=== PATIENT | male | born 1940 | race Caucasian/White ===

== ENCOUNTER 2017-03-17 11:36 | Inpatient (IN) ==
[2017-03-17] MEDS ORDERED: Acetaminophen 325 MG TABLET PO ONE (12:54)
--- NOTE | 2017-03-17 13:01 | Emergency Department Note ---
Disposition Clinical Impression: Lacunar infarction TIA (transient ischemic attack) Qualifiers: Transient cerebral ischemia type: amaurosis fugax Qualified Code(s): G45.3 - Amaurosis fugax Transient visual loss Qualifiers: Laterality: right Qualified Code(s): H53.121 - Transient visual loss, right eye Disposition: Admitted As Inpatient Condition: Good Time of Disposition: 15:11 Fall HPI - General Chief Complaint: ED Fall Stated Complaint: Fall R hip Pain/ Left Hand and Facial Numbness Time Seen by Provider: 03/17/17 12:34 Source: patient Mode of arrival: ambulatory Limitations: no limitations Nursing Notes Reviewed: Yes Vital Signs Reviewed: Yes - History of Present Illness HPI Narrative: Patient presents to the ED with 2 separate complaints. Patient first complaint is of right hip and right low back pain. He reports that yesterday he was getting off his lawnmower and his left hip gave out and he fell to the ground and landed on his right greater trochanter. He states that he needs a left hip replacement and that is not uncommon for his hip to give out, however, he has been having fairly significant pain and ecchymosis to his right hip and low back. States he has been able to ambulate but with some difficulty. No loss of control of bowel or bladder function. No associated abdominal pain, nausea, vomiting or diarrhea. Patient's second complaint is intermittent, left-sided facial numbness and left hand numbness. Patient states that this numbness started before she fell, but not immediately before. States he had it a few days ago and then also had it last night. He reports that the left side of his face from his left eye down to his jaw is not completely numb, but has significant decrease in sensation as compared to the right. He also complains of numbness in his left second and third digit dorsum of his hand up to his wrist. This is also intermittent and has resolved. There is no focal neurological weakness or deficit. He has had no slurred speech or confusion. He does have a history of TIAs, but cannot remember what they are like because there was so long ago. He does state that sometimes when he turns his head that that will bring the numbness on but other times it will not. He also complains of intermittent transient loss in his entire right visual field of the last month. He states at times it will pretty much go completely away. Other than being able to see lights and shapes. He saw his carbide powder processor to cleaned off his cataract lens and checked him for diabetic retinopathy and states that the back of his eye looked good. He has no neurological complaints currently. - Related Data Home Medications Medication Instructions Recorded Confirmed Clopidogrel [Plavix] 75 mg PO DAILY 03/17/17 03/17/17 Insulin NPH Human Isophane 20 unit SQ QPM 03/17/17 03/17/17 [Novolin N] Insulin Regular, Human [Novolin R] 20 unit SQ QAM 03/17/17 03/17/17 Lisinopril-HCTZ 20-12.5 [Prinzide 1 tab PO BID 03/17/17 03/17/17 20-12.5] Metoprolol [Lopressor] 25 mg PO BID 03/17/17 03/17/17 Pravastatin Sodium [Pravachol] 40 mg PO QPM 03/17/17 03/17/17 amLODIPine [Norvasc] 5 mg PO DAILY 03/17/17 03/17/17 Allergies Allergy/AdvReac Type Severity Reaction Status Date / Time Iodinated Contrast- Oral and Allergy Hives Verified 03/17/17 11:40 IV Dye [Iodinated Contrast Media - Oral and] All systems ED: reviewed and negative except as stated. Constitutional: Denies: fever, chills Eyes: Reports: vision change ENT ED: Denies: dysphagia Cardiovascular: Denies: chest pain Respiratory: Denies: dyspnea Gastrointestinal: Denies: abdominal pain, vomiting Genitourinary: Denies: hematuria Musculoskeletal: Reports: as per HPI, back pain, myalgia Integumentary: Reports: as per HPI Neurological: Reports: numbness, paresthesias. Denies: headache Endocrine: Denies: fatigue Fall PMH - Past Medical History Medical history: Reports: arthritis, cancer, COPD, coronary artery disease, diabetes, hyperlipidemia, hypertension, myocardial infarction, other Psychiatric history: Reports: no psych history - Social History Smoking Status: Former smoker Alcohol use: Reports: none Drug use: Reports: none Physical Exam - General Limitations: no limitations General appearance: alert, in no apparent distress - Head Head exam: atraumatic, normocephalic, normal inspection - Eye Eye exam: Present: normal appearance, PERRL, EOMI - ENT ENT exam: normal exam, normal oropharynx, mucous membranes moist - Neck Neck exam: Present: normal inspection, full ROM, trachea midline. Absent: tenderness - Chest Chest inspection: Present: normal inspection, symmetric chest wall rise - Respiratory Respiratory exam: Present: normal lung sounds bilaterally - Cardiovascular Cardiovascular exam: Present: regular rate, normal rhythm, normal heart sounds - Abdominal Exam Abdominal exam: Present: soft, Non-Tender. Absent: tenderness, distention, guarding, rebound, rigidity - Extremities Exam Extremities exam: Present: normal inspection, full ROM. Absent: tenderness, pedal edema - Expanded Lower Extremity Exam Hip/Pelvis exam: Present: pelvis stable, other (Patient has a large area of ecchymosis over his right greater trochanter extending down the thigh and up over the iliac crest associated with tenderness and muscle spasm of the lower right lateral lumbar spine.) Upper leg exam: Present: normal inspection, full ROM Knee exam: Present: normal inspection, full ROM Lower leg exam: Present: normal inspection, full ROM Ankle exam: Present: normal inspection, full ROM Foot/toe exam: Present: normal inspection, full ROM Neurovascular/Tendon exam: Present: normal capillary refill. Absent: motor deficit, sensory deficit, tendon deficit Gait: antalgic - Back Exam Back exam: Present: other (Patient has tenderness over the lower lumbar vertebra but more so over the right lateral lumbar musculature. Associated ecchymosis from a recent fall. Iliac crest on the right is also tender) - Neurological Exam Neurological exam: Present: alert, oriented X3, CN II-XII intact (Does have a subjective decrease in sensation on the left V2/V3 distribution. Otherwise normal) - Psychiatric Psychiatric exam: Present: normal affect, normal mood - Skin Skin exam: Present: warm, dry, intact, normal color Course Course Narrative: 77-year-old male presenting with low back and right hip pain, but also concerns over TIA. We will CT his lumbar spine and hip due to tenderness and ecchymosis. Also CT his head. Patient will likely need to be admitted to the hospital for carotid ultrasound and MRI of the brain. Patient and family agreeable with plan. Does take Plavix daily. 4. History of stents Vital Signs Temperature 97.7 F 03/17/17 11:40 Pulse Rate 55 03/17/17 11:40 Respiratory Rate 20 03/17/17 11:40 Blood Pressure 174/76 03/17/17 11:40 O2 Sat by Pulse Oximetry 97 03/17/17 11:40 Temperature 98 F 03/17/17 18:42 Pulse Rate 59 03/17/17 18:42 Respiratory Rate 20 03/17/17 18:42 Blood Pressure 163/79 03/17/17 18:42 O2 Sat by Pulse Oximetry 94 03/17/17 18:42 Oxygen Delivery Oxygen Delivery Room Air Fall - Medical Records Medical records reviewed: Yes I reviewed the patient's medical records. - Lab Data Lab results reviewed: Yes I reviewed the patient's lab results. Result diagrams: 03/17/17 13:30 03/17/17 13:30 Lab Results 03/17/17 03/17/17 03/17/17 Range/Units 13:30 13:30 13:30 WBC 6.2 (4.3-11.1) K/mcL RBC 4.28 (4.19-5.50) M/mcL Hgb 13.5 (12.9-16.9) g/dL Hct 38.9 (37.5-50.1) % MCV 90.9 (83.0-100.0) fL MCH 31.5 (28.0-33.3) pg MCHC 34.7 (31.6-35.5) g/dL RDW 12.6 (11.5-14.5) % Plt Count 137 L (140-400) K/mcL MPV 10.6 (9.4-12.4) fL Immature Gran % 0.6 (0-4) % Seg Neutrophils % 61.6 % Lymphocytes % 24.1 % Monocytes % 12.1 % Eosinophils % 1.1 % Basophils % 0.5 % Neutrophils # 3.8 (1.6-8.9) K/mcL Lymphocytes # 1.5 (0.6-4.6) K/mcL Monocytes # 0.8 (0.0-1.3) K/mcL Eosinophils # 0.1 (0.0-0.6) K/mcL Basophils # 0.0 (0.0-0.2) K/mcL Sodium 138 (136-145) mEq/L Potassium 4.0 (3.5-4.5) mEq/L Chloride 102 (98-109) mEq/L Carbon Dioxide 30 H (19-29) mEq/L BUN 17 (8-26) mg/dL Creatinine 0.94 (0.72-1.25) mg/dL Est GFR ( Amer) > 60 (> 60) Est GFR (Non-Af Amer) > 60 (> 60) BUN/Creatinine Ratio 18 (6-26) Glucose 135 H (70-99) mg/dL Calculated Osmolality 289 (280-300) Calcium 9.3 (8.6-10.8) mg/dL Magnesium 1.6 (1.6-2.6) mg/dL Total Bilirubin 1.1 (0.2-1.2) mg/dL AST 19 (5-34) Units/L ALT 15 (0-55) Units/L Alkaline Phosphatase 77 (38-126) Units/L Creatine Kinase 113 (30-200) Units/L Troponin I 0.01 (0-0.03) ng/mL Serum Total Protein 6.5 (6.0-8.3) g/dL Albumin 3.3 L (3.5-5.0) g/dL Globulin 3.2 (2.4-3.5) g/dL Albumin/Globulin Ratio 1.0 L (1.1-2.2) - Radiology Data Radiology results reviewed: Yes I reviewed the patient's radiology results. - EKG Data EKG attestation: Yes I reviewed and interpreted this EKG. EKG results narrative: Sinus bradycardia with first-degree AV block, rate 54, ID interval 2:30, QRS 85 , QTC 393, normal axis, no ischemic changes S.B.A.R. - Kailash.[email or web address] Situation: Demographics, MOA Background: Presenting Complaint, Relevant PMH, Meds, & Allergies Assessment: Vital Signs, Course and respsone to treatment, Exam Concerns, Patient/Family Expectation, Pertinant Lab Results, Outstanding Labs Recommendation: Barrier(s) to disposition, Recommendation based on pending studies, treatments, or consults S.B.A.RPiyush Report Given to: Dr. Artur Valente Repor Time: 15:11 Attestation Statement - Attestation Attestation: I examined this patient and my medical decision-making was reviewed with the Resident Physician. I agree with the documented findings, disposition and treatment plan as described except to the extent set forth below. Male patient with frequent falls and the concern for stroke. CT scan concerning for stroke. Age indeterminate. Will admit for further evaluation and stroke workup.
[2017-03-17 13:42] LABS: Basophils % 0.5 %; Eosinophils # 0.1 K/mcL (0.0-0.6); Eosinophils % 1.1 %; Hematocrit 38.9 % (37.5-50.1); Hemoglobin 13.5 g/dL (12.9-16.9); Immature Granulocytes % 0.6 % (0-4); Lymphocytes # 1.5 K/mcL (0.6-4.6); Lymphocytes % 24.1 %; Mean Corpuscular HGB Conc 34.7 g/dL (31.6-35.5); Mean Corpuscular Hemoglobin 31.5 pg (28.0-33.3); Mean Corpuscular Volume 90.9 fL (83.0-100.0); Mean Platelet Volume 10.6 fL (9.4-12.4); Monocytes # 0.8 K/mcL (0.0-1.3); Monocytes % 12.1 %; Neutrophils # 3.8 K/mcL (1.6-8.9); Platelet Count 137 K/mcL (140-400); Red Blood Count 4.28 M/mcL (4.19-5.50); Red Cell Distribution Width 12.6 % (11.5-14.5); Segmented Neutrophils % 61.6 %
[2017-03-17 13:56] LABS: Alanine Aminotransferase 15 Units/L (0-55); Albumin 3.3 g/dL (3.5-5.0); Alkaline Phosphatase 77 Units/L (38-126); BUN/Creatinine Ratio 18 (6-26); Bilirubin,Total 1.1 mg/dL (0.2-1.2); Blood Urea Nitrogen 17 mg/dL (8-26); Calcium 9.3 mg/dL (8.6-10.8); Carbon Dioxide 30 mEq/L (19-29); Chloride 102 mEq/L (98-109); Creatine Kinase 113 Units/L (30-200); Globulin 3.2 g/dL (2.4-3.5); Magnesium 1.6 mg/dL (1.6-2.6); Sodium 138 mEq/L (136-145); Total Protein 6.5 g/dL (6.0-8.3); eGFR For African Americans > 60 (> 60); eGFR For Non-African Americans > 60 (> 60)
[2017-03-17 14:49] LABS: Aspartate Amino Transferase 19 Units/L (5-34); Glucose 135 mg/dL (70-99)
[2017-03-17] MEDS ORDERED: Aspirin 325 MG TABLET PO ONE (14:49)
[2017-03-17 14:50] LABS: Osmolality,Calculated 289 (280-300)
[2017-03-17] MEDS ORDERED: Ondansetron 4 MG/2 ML VIAL IVP PRN (18:00)
[2017-03-17] MEDS ORDERED: Naloxone 0.4 MG/ML INJ IVP PRN (18:00)
--- NOTE | 2017-03-17 18:03 | Event Note ---
Date of Encounter: 03/17/17 Time of Encounter: 17:45 I personally interviewed and examined this pt. I agree with the findings, assessment and plan of COMPUTER DESIGNER Gilmer. TI workup with MRI, echo, carotid. PeAdd babrmissive HTN. On plavix and statin. Add baby asa.
[2017-03-17] MEDS ORDERED: *HR* Dextrose 50 % in Water (Syg) 50 ML SYRINGE IVP PRN (18:08)
[2017-03-17] MEDS ORDERED: Dextrose Gel 15 GM PO PRN ×2 (18:08)
[2017-03-17] MEDS ORDERED: D5% in Water 1,000 ML IVC PRN (18:08)
--- NOTE | 2017-03-17 18:43 | Internal Med History&Physical ---
Date of Encounter: 03/17/17 Time of Encounter: 17:29 Assessment and Plan (1) Lacunar infarction Current visit: Yes Status: Acute 1 patient has been expressing intermittent numbness tingling as well as left- sided heaviness to lower extremity off and on for the past few days. He does have a history of TIA, diabetes hypertension hyperlipidemia. CT of the head did reveal small right pelvic lacunar infarct. Victor Hugo his symptoms have resolved. We will continue with neuro checks 2 I did consult neurology and spoke with Dr. Leo will see patient a phone consult 3 we will obtain MRI of head 3 carotid Dopplers 4 cardiac echo 5 continue on Plavix, baby aspirin and statin we will check lipid profile 6 -permissive hypertensive we will continue with his home medications 7 continuous cardiac monitoring (2) Hypertension Current visit: No Status: Chronic 1 presently systolics 160-170 we will continue with home medications for now and allow for permissive hypertension-treat for systolic greater than 200 Qualifiers: Hypertension type: essential hypertension Qualified Code(s): I10 - Essential (primary) hypertension (3) Diabetes mellitus Current visit: Yes Status: Acute 1 Accu-Cheks before meals at bedtime with fine scale insulin we will continue with basal 2 diabetic diet Qualifiers: Diabetes mellitus type: type 2 Diabetes mellitus complication status: without complication Diabetes mellitus fdc insulin use: 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 He has stents placed in the past. He will continue with beta jessica and aspirin Plavix statin Continue with nitrates as needed for chest pain Qualifiers: Coronary Disease-Associated Artery/Lesion type: bypass graft [place] vs. transplanted heart: [place] heart Associated angina: without angina Qualified Code(s): I25.810 - Atherosclerosis of coronary artery bypass graft(s) without angina pectoris (6) DVT prophylaxis Current visit: Yes Status: Acute NEELAM brown Internal Medicine - H&P: HPI Chief complaint: Numbness and tingling Admitted From: Emergency Dept Plans for Post Hospital Care: Home History of present illness: Mr. Newell is a 77 year old male past medical history of COPD CAD with stent placement diabetes hyperlipidemia hypertension and TIA in the past. Patient reports that yesterday he was getting off his lawnmower in his left hip gave out and he fell to the ground and landed on his right greater trochanter. He states he needs a left hip replacement and does not come in for a prescription to give out. He has been experiencing a significant pain as well as ecchymosis to the lower back and right hip. He has been able to ambulate but with some difficulty. The loss of control by her bladder. Also arches fall patient had been experiencing numbness to his left side. He reports left-sided numbness tingling to his pain is from his left eye down to his jaw is not completely numb he does not have any difficulty chewing swallowing or speaking there is no facial droop. He also complains of numbness in his left second and third digit dorsum of his hand up to his wrist this is also transient and has resolved. He describes that his left leg will at times feel heavy as if there is cemented on it. He denies any vision changes at this time however last month he experienced a transient loss of his right entire visual field. This spontaneously resolved He saw his itinerant teacher assistant who did clean his cataract lens and checked him for diabetic retinopathy states the back of his eye looked good. He presented to the ER with the above complaints. In the ER CT of head was obtained which did show a small right L Sonu Alberto infarct. Chest x- ray with no acute process. Head CT with no acute changes no fractures. CT of spine with degenerative changes nothing acute. Troponin was 0.01 mag was 1.6 with of his lab work was unremarkable. He was given a baby aspirin has been admitted for further work up evaluation. Victor Hugo patient does not appear to be in any respiratory distress he denies A chest pain or soreness of breath. He is alert and appropriate there is no facial droop noted no slurred speech. No focal deficits noted. Cranial nerves II through XII are intact. Romberg was negative. Patient was able to ambulate her he felt a little unsteady. He denies any numbness or tingling at this time His lung sounds are clear heart sounds are regular S1 and S2 with no rubs clicks, murmurs noted abdomen soft nontender he did have some ecchymosis to his right hip to right thigh.. No pedal edema noted. He hemodynamically stable I reviewed this case with Dr. Siddiqui who presented plan. Past Med Surg Social Fam HX - Past Medical History Medical history: arthritis, cancer, COPD, coronary artery disease, diabetes, hyperlipidemia, hypertension, myocardial infarction, other Psychiatric history: no psych history - Social History Smoking Status: Former smoker Smokeless Tobacco Status: No Alcohol use: none Drug use: none - Family History Father Living Status: Cause of : cardiac Hx Family Neurologic Disorders: Yes (History of stroke) Mother Living Status: Cause of : Heart disease diabetes Internal Medicine - H&P: Meds Clopidogrel [Plavix] 75 mg PO DAILY 03/17/17 [History] Insulin NPH Human Isophane [Novolin N] 20 unit SQ QPM 03/17/17 [History] Insulin Regular, Human [Novolin R] 20 unit SQ QAM 03/17/17 [History] Lisinopril-HCTZ 20-12.5 [Prinzide 20-12.5] 1 tab PO BID 03/17/17 [History] Metoprolol [Lopressor] 25 mg PO BID 03/17/17 [History] Pravastatin Sodium [Pravachol] 40 mg PO QPM 03/17/17 [History] amLODIPine [Norvasc] 5 mg PO DAILY 03/17/17 [History] 3 Allergy/AdvReac Type Severity Reaction Status Date / Time Iodinated Contrast- Oral and Allergy Hives Verified 03/17/17 11:40 IV Dye [Iodinated Contrast Media - Oral and] All Systems PM: A 10-system review of systems was performed and is negative for pertinent findings except as documented above in the HPI. - Constitutional Constitutional: no chills, no fever(s), no night sweats - EENT Eyes: no change in vision, no discharge, no pain, no photophobia Nose, mouth and throat: no dysphagia, no nasal discharge, no neck pain, no sore throat - Cardiovascular Cardiovascular ROS IM: no chest pain, no diaphoresis, no dyspnea, no lightheadedness, no palpitations, no syncope - Respiratory Respiratory: no cough, no dyspnea, no wheezing, no excessive phlegm production - Gastrointestinal Gastrointestinal: no abdominal pain, no diarrhea, no hematemesis, no hematochezia, no melena, no nausea, no vomiting - Musculoskeletal Musculoskeletal ROS IM: back pain, stiffness, tingling - Integumentary Additional comments: Ecchymosis - Neurological Neurological ROS: loss of vision, numbness, tingling - Hematologic/Lymphatic Hematologic/Lymphatic: no easy bruising - Constitutional Vitals: Temp Pulse Resp BP Pulse Ox 97.5 F L 65 16 182/94 98 03/17/17 17:25 03/17/17 17:25 03/17/17 17:25 03/17/17 17:25 03/17/17 17:25 General appearance: Present: A&O X 3, answers questions appropriately - Head Head exam: Present: atraumatic, normocephalic - Eye Eye exam: Present: PERRL, conjuntiva pink, sclera anicteric Pupils: Present: PERRL - Neck Neck exam general surgery: Present: supple, trachea midline. Absent: lymphadenopathy - Respiratory Respiratory exam: Present: CTAB. Absent: accessory muscle use, rales, rhonchi, wheezes - Cardiovascular Cardiovascular exam: Present: RRR, +S1, +S2. Absent: diastolic murmur, gallop, rubs, systolic murmur - GI/Abdominal GI/Abdominal exam: Present: normal bowel sounds, soft, no peritoneal signs. Absent: distended, tenderness - Extremities Exam Extremities exam: Present: warm, radial pulses palpable and symmetrical. Absent : calf tenderness, cyanotic, pedal edema - Neurological Exam Neurological exam: Present: CN II-XII intact, oriented X3, no focal deficits, strengths equal and symetr throughout. Absent: pronater drift, facial droop, speech deficit - Skin Skin exam: Present: dry, intact Additional comments: Ecchymosis Internal Med - H&P Results - Labs CBC & Chem 7: 03/17/17 13:30 03/17/17 13:30
[2017-03-17] MEDS: Lisinopril-HCTZ 20-12.5mg TABLET PO SCH (20:19)
[2017-03-17] MEDS ORDERED: Insulin LISPRO 300 UNITS/3 ML VIAL SQ SCH (21:00)
[2017-03-18 02:18] LABS: Basophils % 0.4 %; Eosinophils # 0.1 K/mcL (0.0-0.6); Eosinophils % 2.1 %; Hematocrit 38.6 % (37.5-50.1); Hemoglobin 13.1 g/dL (12.9-16.9); Immature Granulocytes % 0.6 % (0-4); Lymphocytes # 1.5 K/mcL (0.6-4.6); Lymphocytes % 29.3 %; Mean Corpuscular HGB Conc 33.9 g/dL (31.6-35.5); Mean Corpuscular Volume 91.3 fL (83.0-100.0); Monocytes # 0.8 K/mcL (0.0-1.3); Monocytes % 14.5 %; Neutrophils # 2.7 K/mcL (1.6-8.9); Platelet Count 137 K/mcL (140-400); Red Blood Count 4.23 M/mcL (4.19-5.50); Red Cell Distribution Width 12.4 % (11.5-14.5); Segmented Neutrophils % 53.1 %
[2017-03-18 02:38] LABS: BUN/Creatinine Ratio 15 (6-26); Blood Urea Nitrogen 16 mg/dL (8-26); Carbon Dioxide 28 mEq/L (19-29); Chloride 100 mEq/L (98-109); Chol/HDL Ratio 4.5 (0-4.9); Cholesterol 134 mg/dL (< 200); Glucose 326 mg/dL (70-99); HDL Cholesterol 30 mg/dL (40-59); LDL Cholesterol,Calculated 79 mg/dL (0-99); Magnesium 1.4 mg/dL (1.6-2.6); Osmolality,Calculated 294 (280-300); Potassium 3.8 mEq/L (3.5-4.5); Sodium 135 mEq/L (136-145); Triglycerides 123 mg/dL (< 150); eGFR For African Americans > 60 (> 60); eGFR For Non-African Americans > 60 (> 60)
[2017-03-18] MEDS ORDERED: Insulin LISPRO 300 UNITS/3 ML VIAL SQ SCH ×3 (07:30→21:00)
[2017-03-18] MEDS ORDERED: amLODIPine 5 MG TABLET PO SCH (09:00)
[2017-03-18] MEDS: Lisinopril-HCTZ 20-12.5mg TABLET PO SCH (09:55)
[2017-03-18] MEDS: Aspirin 81 MG TAB.CHEW PO SCH (09:55)
[2017-03-18] MEDS: Insulin LISPRO 300 UNITS/3 ML VIAL SQ SCH ×3 (10:00→16:34)
[2017-03-18] MEDS ORDERED: Acetaminophen 325 MG TABLET PO PRN (15:00)
[2017-03-18] MEDS: Magnesium Oxide 400 MG TABLET PO SCH ×2 (15:50→20:49)
[2017-03-18] MEDS: Insulin DETEMIR 100 UNIT/ML X5UNITS SQ SCH (15:51)
[2017-03-18] MEDS: *HR* Heparin 5,000 UNIT/ML VIAL SQ SCH (16:33)
[2017-03-18] MEDS ORDERED: Insulin NPH 100 UNIT/ML (x5UNIT) SQ SCH (18:00)
--- NOTE | 2017-03-18 18:36 | Electrocardiograph Report ---
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
--- NOTE | 2017-03-18 19:27 | Internal Med Progress Note ---
Date of Encounter: 03/18/17 Time of Encounter: 09:00 - Assessment and plan (1) Lacunar infarction Current Visit: Yes Status: Acute Assessment and plan: MRI shows watershed area infarct. - Place pt on cont cardiac monitoring. - Keep relatively high BP, permissive HTN. - Pt is on asa, plavix, atorvastatin. - Follow echo, duplex carotid. - Pt/OT evaluation as pt also has fall at home. - Neurology consult. (2) Hypertension Current Visit: No Status: Chronic Assessment and plan: Hold the home medication to allow permissive hypertension. Qualifiers: Hypertension type: essential hypertension Qualified Code(s): I10 - Essential (primary) hypertension (3) Diabetes mellitus Current Visit: Yes Status: Acute Assessment and plan: Continue basal and a sliding-scale insulin. Adjust the dose to get better glucose control. Qualifiers: Diabetes mellitus type: type 2 Diabetes mellitus complication status: without complication Diabetes mellitus beef farmer insulin use: with group home use Qualified Code(s): E11.9 - Type 2 diabetes mellitus without complications ; Z79.4 - prison (current) use of insulin (4) Coronary artery disease Current Visit: No Status: Chronic Assessment and plan: Continue home medication aspirin, Plavix, beta jessica, and statin. Patient has no chest pain. Qualifiers: Coronary Disease-Associated Artery/Lesion type: bypass graft [place] vs. transplanted heart: [place] heart Associated angina: without angina Qualified Code(s): I25.810 - Atherosclerosis of coronary artery bypass graft(s) without angina pectoris (5) DVT prophylaxis Current Visit: Yes Status: Acute Assessment and plan: Heparin subcutaneously - Time Spent With Patient 25 - 35 minutes - Subjective Interval history: Patient is a 77-year-old male admitted for right-sided weakness, fall, CVA. Past medical history is significant for CAD, hypertension, diabetes. I saw and examined the patient today. Patient is awake alert and oriented 3. Denies weakness or numbness. Vitals are stable. MRI brain shows watershed area infarct. Neurology consult was called. - Constitutional Vitals: Temp Pulse Resp BP Pulse Ox 98.3 F 58 17 160/72 97 03/18/17 15:00 03/18/17 15:00 03/18/17 15:00 03/18/17 15:00 03/18/17 15:00 General appearance: Present: A&O X 3, answers questions appropriately - Head Head exam: Present: atraumatic, normocephalic - Eye Eye exam: Present: PERRL, conjuntiva pink, sclera anicteric Pupils: Present: PERRL - Neck Neck exam general surgery: Present: supple, trachea midline. Absent: lymphadenopathy - Respiratory Respiratory exam: Present: CTAB. Absent: accessory muscle use, rales, rhonchi, wheezes - Cardiovascular Cardiovascular exam: Present: RRR, +S1, +S2. Absent: diastolic murmur, gallop, rubs, systolic murmur - GI/Abdominal GI/Abdominal exam: Present: normal bowel sounds, soft, no peritoneal signs. Absent: distended, tenderness - Extremities Exam Extremities exam: Present: warm, radial pulses palpable and symmetrical. Absent : calf tenderness, cyanotic, pedal edema - Neurological Exam Neurological exam: Present: CN II-XII intact, motor sensory deficit (Right side weakness 5-/5), oriented X3, no focal deficits. Absent: pronater drift, facial droop, speech deficit - Skin Skin exam: Present: dry, intact Internal Medicine: Result - Labs CBC & Chem 7: 03/18/17 01:41 03/18/17 01:41 - Impressions Impressions Echocardiogram 03/18/17 18:06 Impressions: Technically suboptimal due to poor echocardiographic windows. Normal LV systolic function, LVEF 55-60%. Normal right ventricular size and function. No significant valvular dysfunction. Unable to estimate RVSP due to lack of TR jet. No evidence of intracardiac shunting with agitated saline contrast. Left Ventricular Wall Motion: Rest Echo Findings All wall segments showed normal motion. Findings: Study Quality * Technically suboptimal due to poor echocardiographic windows. ECG Findings * Sinus rhythm and sinus bradycardia. Left Ventricle * Normal LV systolic function, LVEF 55-60%. * Normal LV chamber size and wall thickness. * Indeterminate diastolic function. Right Ventricle * Normal right ventricular size and function. Left Atrium * Normal left atrial size. Right Atrium * Normal right atrial size. Interatrial Septum * No evidence of intracardiac shunting with agitated saline contrast. Aorta * Normally sized aortic root. Pericardium * There is no pericardial effusion present. IVC * The IVC is not well evaluated. Aortic Valve * Aortic valve not well visualized. * No aortic stenosis. * No aortic regurgitation. Mitral Valve * Normal mitral valve structure. * No mitral stenosis. * No mitral regurgitation. Tricuspid Valve * Tricuspid valve not well visualized. * No tricuspid stenosis. * Trace tricuspid regurgitation. * Unable to estimate RVSP due to lack of TR jet. Pulmonic Valve * Pulmonic valve not well visualized. * No pulmonic stenosis. * No pulmonic regurgitation. Brain MRI 03/18/17 18:08 IMPRESSION: Small, acute infarcts in the subcortical and deep white matter of the right frontal and parietal lobes. These have a distribution suggestive of watershed infarct. Minimal background chronic microvascular ischemic disease. D/ / 03/18/2017 10:07:19 Ibrahima Castillo MD / [facility] Interpreting Provider: Ibrahima Castillo MD Consult Discharge Plan - Plan Referrals: Leda Slaughter DO [Primary Care Provider] -
[2017-03-19] MEDS: *HR* Heparin 5,000 UNIT/ML VIAL SQ SCH ×2 (06:03→17:19)
[2017-03-19 06:25] LABS: Basophils % 0.3 %; Eosinophils # 0.1 K/mcL (0.0-0.6); Eosinophils % 1.5 %; Hematocrit 40.1 % (37.5-50.1); Hemoglobin 13.5 g/dL (12.9-16.9); Immature Granulocytes % 0.7 % (0-4); Lymphocytes # 1.9 K/mcL (0.6-4.6); Lymphocytes % 31.8 %; Mean Corpuscular HGB Conc 33.7 g/dL (31.6-35.5); Mean Corpuscular Hemoglobin 30.7 pg (28.0-33.3); Mean Corpuscular Volume 91.1 fL (83.0-100.0); Monocytes # 0.9 K/mcL (0.0-1.3); Monocytes % 15.2 %; Platelet Count 137 K/mcL (140-400); Red Cell Distribution Width 12.4 % (11.5-14.5); Segmented Neutrophils % 50.5 %
[2017-03-19 07:03] LABS: BUN/Creatinine Ratio 20 (6-26); Blood Urea Nitrogen 19 mg/dL (8-26); Calcium 9.3 mg/dL (8.6-10.8); Carbon Dioxide 27 mEq/L (19-29); Chloride 102 mEq/L (98-109); Glucose 161 mg/dL (70-99); Osmolality,Calculated 288 (280-300); Potassium 4.1 mEq/L (3.5-4.5); Sodium 136 mEq/L (136-145); eGFR For African Americans > 60 (> 60); eGFR For Non-African Americans > 60 (> 60)
[2017-03-19] MEDS: Aspirin 81 MG TAB.CHEW PO SCH (07:53)
[2017-03-19] MEDS: Magnesium Oxide 400 MG TABLET PO SCH (07:54)
[2017-03-19] MEDS: Insulin DETEMIR 100 UNIT/ML X5UNITS SQ SCH (07:57)
[2017-03-19] MEDS: Insulin LISPRO 300 UNITS/3 ML VIAL SQ SCH ×3 (08:00→17:24)
--- NOTE | 2017-03-19 09:15 | Neurology - Consult Note ---
Date of Encounter: 03/27/17 Time of Encounter: 07:25 Assessment and Plan (1) CVA (cerebral vascular accident) Status: Acute This patient symptom seems to be consistent with the acute infarct his MRI did confirm that indeed he has infarct in his right hemisphere Cording to the MRI report there is small, acute infarcts in the subcortical and deep white matter of the right frontal and parietal lobes. distribution suggestive of watershed infarct. Patient is been taking blood pressure medication but not evident that he may have significant drop in his blood pressure certainly we need to keep an eye on his blood pressure and make sure that it is not fluctuating. He has been on plavix but has been off for about a week perhaps it may have triggered these event at the moment he remains on aspirin and Plavix suggested that he should continue on it. We will get CT angiogram to make sure there is no critical stenosis in his vasculature. The moment he does not have any significant neurological deficit on his examination do not think that he would require any long-term rehabilitation, will ask physical therapy to evaluate the patient before discharge to make sure that his gait and balance is stable before discharge History of Present Illness HPI: Mr. Newell is a 77 year old male with past medical history of COPD CAD with stent placement diabetes hyperlipidemia hypertension and TIA in the past. according to the patient yesterday he was getting off his lawnmower in his left hip gave out and he fell to the ground, He has been experiencing a significant pain as well as ecchymosis to the lower back and right hip. He has been able to ambulate but with some difficulty. at the same time he noticed numbness of left side. mainly in left arm, october e in jaw as well, he denies any difficulty chewing swallowing or speaking there is no facial droop. He describes that his left leg at times feel heavy, he denies any vision changes at this time however last month he experienced a transient loss of his right entire visual field. This spontaneously resolved He saw his construction administrative assistant, In the ER CT of head was obtained which did show a small right Lacunar infarct. he has been admitted for further work up According to the patient he was supposed to get a colonoscopy for which she has been off for Plavix 5/6 days but later on as it got canceled he start taking it back again/ Past Med Surg Social Fam HX - Past Medical History Medical history: arthritis, cancer, COPD, coronary artery disease, diabetes, hyperlipidemia, hypertension, myocardial infarction, other Psychiatric history: no psych history - Social History Smoking Status: Former smoker Smokeless Tobacco Status: No Alcohol use: none Drug use: none - Family History Father Living Status: Cause of : cardiac Hx Family Neurologic Disorders: Yes (History of stroke) Mother Living Status: Cause of : Heart disease diabetes Medications and Allergies Clopidogrel [Plavix] 75 mg PO DAILY 03/17/17 [History] Insulin NPH Human Isophane [Novolin N] 20 unit SQ BIDWM 03/17/17 [History] Insulin Regular, Human [Novolin R] 20 unit SQ TIDAC 03/17/17 [History] Lisinopril-HCTZ 20-12.5 [Prinzide 20-12.5] 1 tab PO BID 03/17/17 [History] Metoprolol [Lopressor] 25 mg PO BID 03/17/17 [History] amLODIPine [Norvasc] 5 mg PO DAILY 03/17/17 [History] Aspirin 81 mg PO DAILY #30 tab.chew 03/19/17 [Rx] Atorvastatin [Lipitor] 40 mg PO HS #30 tablet 03/19/17 [Rx] 3 Allergy/AdvReac Type Severity Reaction Status Date / Time Iodinated Contrast- Oral and Allergy Hives Verified 03/24/17 09:03 IV Dye [Iodinated Contrast Media - Oral and] All Systems: A 10-system review of systems was performed and is negative for pertinent findings except as documented above in the HPI. Physical Examination - Vital Signs Vital Signs: Initial Vital Signs Temp Pulse Resp BP Pulse Ox 97.7 F 55 20 174/76 97 03/17/17 11:40 03/17/17 11:40 03/17/17 11:40 03/17/17 11:40 03/17/17 11:40 - Neurologic Detailed motor examination: full strength in all major muscle groups Motor examination - right side: 5/5: deltoids, biceps, triceps, wrist flexion, wrist extension, back up machine operator, hip flexors, tibialis Anterior, quadriceps, toe extension (EHL), plantarflexion Motor examination - left side: 5/5: deltoids, biceps, triceps, wrist flexion, wrist extension, hip flexors, back up machine operator, quadriceps, tibialis Anterior, toe extension (EHL), plantarflexion Detailed sensory examination: intact Reflex and gait examination: intact Reflexes: Biceps: 1+, Triceps: 1+, Brachioradialis: 1+, Patella: 1+, Achilles: 1 + Mental Status Examination: awake, alert, oriented to person, oriented to place, oriented to time, follows commands appropriately, answers questions appropriately, no agnosia, no aphasia, no aproxia Cranial nerve examination: PERRL, EOMI, visual cifuentes intact, corneal reflexes brisk symmetrically, sensory to face intact, mastication intact, no facial asymmetry is present, no dysarthria, hearing is intact symmetrically, soft palate elevates bilaterally upon phonation, gag reflex intact, flexes SCM and trapezius muscles symmetrically with full power, tongue protrudes midline, no atrophy or facial fasiculations present Cerebellar examination: no dysmetria, performs finger to nose and heel to sullivan symmetrically without ataxia, no gait ataxia, no truncal ataxia Results - Laboratory Findings CBC and BMP: 03/19/17 05:25 03/19/17 05:25 Abnormal lab findings: Abnormal lab results Plt Count 137 K/mcL (140-400) L 03/19/17 05:25 Glucose 161 mg/dL (70-99) H 03/19/17 05:25 POC Glucose 195 (58-89) H 03/19/17 07:46 Magnesium 1.4 mg/dL (1.6-2.6) L 03/18/17 01:41 Albumin 3.3 g/dL (3.5-5.0) L 03/17/17 13:30 Albumin/Globulin Ratio 1.0 (1.1-2.2) L 03/17/17 13:30 HDL Cholesterol 30 mg/dL (40-59) L 03/18/17 01:41 Consult Discharge Plan - Plan Instructions: Aspirin (By mouth), Atorvastatin (By mouth), Ischemic Stroke, House Piping Inspector (GEN) Additional Instructions: As tolerated. Use your cane, if you get dizzy sit down immediately and rest. If vision in your right eye worsens please go to ER per Dr. Jesus's instructions. Referrals: Leda Slaughter DO [Primary Care Provider] - 03/28/17 1:30 pm Ravindra Jesus MD [Partnered Physician] - (Please arrive Friday morning as instructed by Dr. Jesus's nurse for your surgery on your carotid artery. Follow all pre-op instructions they give you prior to surgery.) Sudhakar Leo MD [Partnered Physician] - 04/09/17 10:15 am Prescriptions: Aspirin 81 mg PO DAILY #30 tab.chew Atorvastatin [Lipitor] 40 mg PO HS #30 tablet
--- NOTE | 2017-03-19 13:02 | Carotid Imaging Report ---
Carotid Duplex Patient Name:Lawrence Newell Order Number:[id number] Procedure Date:03/18/2017 Date:8Age:77 yrs Gender:Male Lt BP:160 / 70 mmHg Rt.BP:155 / 74 mmHgHeart Rate: Location:[facility] Room #: 2NE34 Ring Making Machine Operator:Kisha Rosenthal, MICHEAL, RVT Referring MD:Crystal Scherer, ENVELOPE SEALER OPERATOR Reading MD:Colt Bird MD Primary Indications:TIA Risk Factors Yes/No Hypertension Yes Diabetes Yes Hypercholesterolemia Yes Smoker Previous Yes Hx of CAD/PTCA Yes Impressions: Findings: Bilateral proximal ICA has nonstenotic plaque. Recommendations: After imaging the patient returned to their room. Findings Carotid Duplex: Right: The right proximal common carotid artery has a PSV of 55 cm/s and a EDV of 11 cm/s. The right mid common carotid artery has a PSV of 71 cm/s and a EDV of 13 cm/s. The right distal common carotid artery has a PSV of 53 cm/s and a EDV of 12 cm/s. There is nonstenotic plaque in the right bifurcation with a PSV of 70 cm/s and a EDV of 14 cm/s. The right proximal internal carotid artery has a PSV of 30 cm/s and a EDV of 12 cm/s. The right mid internal carotid artery has a PSV of 40 cm/s and a EDV of 16 cm/s. The right distal internal carotid artery has a PSV of 33 cm/s and a EDV of 14 cm/s. The right eca has a PSV of 196 cm/s and a EDV of 17 cm/s. The right vertebral artery has a PSV of 70 cm/s and a EDV of 17 cm/s. The right proximal internal carotid, right mid internal carotid and right distal internal carotid arteries were not well visualized. Left: The left proximal common carotid artery has a PSV of 101 cm/s and a EDV of 14 cm/s. The left mid common carotid artery has a PSV of 128 cm/s and a EDV of 26 cm/s. The left distal common carotid artery has a PSV of 92 cm/s and a EDV of 15 cm/s. The left bifurcation has a PSV of 77 cm/s and a EDV of 14 cm/s. The left proximal internal carotid artery has a PSV of 99 cm/s and a EDV of 27 cm/s. The left mid internal carotid artery has a PSV of 122 cm/s and a EDV of 31 cm/s. The left distal internal carotid artery has a PSV of 116 cm/s and a EDV of 26 cm/s. The left eca has a PSV of 90 cm/s and a EDV of 9 cm/s. The left vertebral artery has a PSV of 37 cm/s and a EDV of 11 cm/s. Prior Study: No prior study available for comparison. Carotid Results Right PSV EDV Assessment Proximal CCA 55 11 Mid CCA 71 13 Distal CCA 53 12 Bifurcation 70 14 Non Stenotic Plaque Proximal ICA 30 12 Not Well Visualized Mid ICA 40 16 Not Well Visualized Distal ICA 33 14 Not Well Visualized ECA 196 17 Vertebral Artery 70 17 Antegrade Flow Left PSV EDV Assessment Proximal CCA 101 14 Mid CCA 128 26 Distal CCA 92 15 Bifurcation 77 14 Proximal ICA 99 27 Mid ICA 122 31 Distal ICA 116 26 ECA 90 9 Vertebral Artery 37 11 Antegrade Flow Ratio's Right ICA/CCA Ratio: 0.56 ICA/CCA Values: 40/71 Left ICA/CCA Ratio: 0.95 ICA/CCA Values: 122/128 Updated by Colt Bird MD on 03/19/2017 12:58:11 PM electronically signed on 03/19/2017 12:58:25 PM with status of Final
[2017-03-19 17:23] VITALS: BP 166/86
--- NOTE | 2017-03-19 17:36 | Vascular/Endovasc Consult Note ---
Date of Encounter: 03/19/17 Time of Encounter: 16:00 Assessment and Plan (1) CVA (cerebral vascular accident) Status: Acute Qualifiers: CVA mechanism: embolism Precerebral and cerebral artery: carotid artery Laterality of affected vessel: unspecified Qualified Code(s): I63.139 - Cerebral infarction due to embolism of unspecified carotid artery (2) Carotid stenosis, right Status: Chronic The patient has had an acute right hemispheric CVA. He has critical right internal carotid artery stenosis as noted on MRA. He will continue with plavix 75mg daily. He will begin Aspirin 81mg daily. He may be discharged to home. He will be scheduled for a carotid endarterctomy as an outpatient. He was advised to seek immediate medical attention if he develops any recurrent signs or symptoms of CVA, TIA or amaurosis fugax. (3) Hypertension Status: Chronic He was counseled regarding atherosclerotic risk factor reduction. Qualifiers: Hypertension type: essential hypertension Qualified Code(s): I10 - Essential (primary) hypertension (4) Diabetes mellitus Status: Chronic Qualifiers: Diabetes mellitus type: type 2 Diabetes mellitus complication status: with circulatory complication Diabetes mellitus complication detail: with other circulatory complications Diabetes mellitus custodial insulin use: with intermodal customer service use Qualified Code(s): E11.59 - Type 2 diabetes mellitus with other circulatory complications; Z79.4 - intermodal customer service (current) use of insulin (5) Hyperlipidemia Status: Chronic Qualifiers: Hyperlipidemia type: mixed hyperlipidemia Qualified Code(s): E78.2 - Mixed hyperlipidemia (6) Coronary artery disease Status: Chronic Qualifiers: Coronary Disease-Associated Artery/Lesion type: bypass graft [place] vs. transplanted heart: [place] heart Associated angina: without angina Qualified Code(s): I25.810 - Atherosclerosis of coronary artery bypass graft(s) without angina pectoris - History of Present Illness Consult date: 03/19/17 Requesting physician: Sudhakar Leo Consult reason: Carotid stenosis Chief complaint: CVA History of present illness: Mr. Newell is a 77 year old male who reports multiple episodes of amaurosis fugax in the last month. He was admitted after an acute episode of left sided parasthesias and weakness. His symptoms resolved. He underwent an MRI that revealed an acute stroke. He underwent and MRA of the neck that revealed signficant right internal carotid artery stenosis. Vascular surgery was then consulted for further evalution. The patient reports that he has not had recurrent symptoms during his admission. He denies any prior CVA. He denies chest pain or shortness of breath. He states that he would like to go home. Past Med Surg Social Fam HX - Past Medical History Medical history: arthritis, cancer, COPD, coronary artery disease, diabetes, hyperlipidemia, hypertension, myocardial infarction, other Psychiatric history: no psych history - Social History Smoking Status: Former smoker Smokeless Tobacco Status: No Alcohol use: none Drug use: none - Family History Father Living Status: Cause of : cardiac Hx Family Neurologic Disorders: Yes (History of stroke) Mother Living Status: Cause of : Heart disease diabetes Medications and Allergies Clopidogrel [Plavix] 75 mg PO DAILY 03/17/17 [History] Insulin NPH Human Isophane [Novolin N] 20 unit SQ BIDWM 03/17/17 [History] Insulin Regular, Human [Novolin R] 20 unit SQ TIDAC 03/17/17 [History] Lisinopril-HCTZ 20-12.5 [Prinzide 20-12.5] 1 tab PO BID 03/17/17 [History] Metoprolol [Lopressor] 25 mg PO BID 03/17/17 [History] amLODIPine [Norvasc] 5 mg PO DAILY 03/17/17 [History] Aspirin 81 mg PO DAILY #30 tab.chew 03/19/17 [Rx] Atorvastatin [Lipitor] 40 mg PO HS #30 tablet 03/19/17 [Rx] 3 Allergy/AdvReac Type Severity Reaction Status Date / Time Iodinated Contrast- Oral and Allergy Hives Verified 03/24/17 09:03 IV Dye [Iodinated Contrast Media - Oral and] All Systems Review: A 10-system review of systems was performed and is negative for pertinent findings except as documented above in the HPI. Exam Vital Signs, Last 4 Hours BP 03/19/17 17:23 166/86 General: Present: Conversant, No Apparent Distress HEENT: Present: Atraumatic, Normocephaly, Pupils equal Neck: Present: Right Carotid bruit. Absent: JVD, Left Carotid bruit, Tracheal deviation Cardiac: Present: Reg Rate and Rhythm, Normal S1 and S2, No Murmur Lungs: Present: Normal Breath Sounds, No Wheeze, Rales, Rhonchi Neuro: Present: Alert and responsive, No focal deficits noted, Cranial nerves grossly intact, Motor nerves grossly intact, Sensory nerves grossly intact Abdomen: Present: Soft, Non-tender. Absent: Masses Vascular: Present: Normal capillary refill, Pulse, normal. Absent: Cyanosis, Edema Skin: Present: No rashes noted on visualized skin Consult Discharge Plan - Plan Instructions: Aspirin (By mouth), Atorvastatin (By mouth), Ischemic Stroke, Sole Rounding Machine Operator (GEN) Additional Instructions: As tolerated. Use your cane, if you get dizzy sit down immediately and rest. If vision in your right eye worsens please go to ER per Dr. Jesus's instructions. Referrals: Leda Slaughter DO [Primary Care Provider] - 03/28/17 1:30 pm Ravindra Jesus MD [Partnered Physician] - (Please arrive Friday morning as instructed by Dr. Jesus's nurse for your surgery on your carotid artery. Follow all pre-op instructions they give you prior to surgery.) Sudhakar Leo MD [Partnered Physician] - 04/09/17 10:15 am Prescriptions: Aspirin 81 mg PO DAILY #30 tab.chew Atorvastatin [Lipitor] 40 mg PO HS #30 tablet
--- NOTE | 2017-03-19 17:41 | Discharge Summary ---
Date of Encounter: 03/19/17 Time of Encounter: 17:00 - Discharge Diagnosis (1) Lacunar infarction Priority: Primary Status: Acute (2) Hypertension Priority: Secondary Status: Chronic Qualifiers: Hypertension type: essential hypertension Qualified Code(s): I10 - Essential (primary) hypertension (3) Diabetes mellitus Priority: Secondary Status: Acute Qualifiers: Diabetes mellitus type: type 2 Diabetes mellitus complication status: without complication Diabetes mellitus medical terminologist insulin use: with medical terminologist use Qualified Code(s): E11.9 - Type 2 diabetes mellitus without complications ; Z79.4 - intermediate card tender (current) use of insulin (4) Coronary artery disease Priority: Secondary Status: Chronic Qualifiers: Coronary Disease-Associated Artery/Lesion type: bypass graft [place] vs. transplanted heart: [place] heart Associated angina: without angina Qualified Code(s): I25.810 - Atherosclerosis of coronary artery bypass graft(s) without angina pectoris (5) DVT prophylaxis Priority: Secondary Status: Acute - Discharge Medications Prescriptions: Aspirin 81 mg PO DAILY #30 tab.chew Atorvastatin [Lipitor] 80 mg PO HS #30 tablet Home Medications: Clopidogrel [Plavix] 75 mg PO DAILY 03/17/17 [History] Insulin NPH Human Isophane [Novolin N] 20 unit SQ BIDWM 03/17/17 [History] Insulin Regular, Human [Novolin R] 20 unit SQ TIDAC 03/17/17 [History] Lisinopril-HCTZ 20-12.5 [Prinzide 20-12.5] 1 tab PO BID 03/17/17 [History] Metoprolol [Lopressor] 25 mg PO BID 03/17/17 [History] amLODIPine [Norvasc] 5 mg PO DAILY 03/17/17 [History] Aspirin 81 mg PO DAILY #30 tab.chew 03/19/17 [Rx] Atorvastatin [Lipitor] 80 mg PO HS #30 tablet 03/19/17 [Rx] Allergies/Adverse Reactions: 3 Allergy/AdvReac Type Severity Reaction Status Date / Time Iodinated Contrast- Oral and Allergy Hives Verified 03/17/17 11:40 IV Dye [Iodinated Contrast Media - Oral and] Procedures/tests Complete & Pending: Procedures Performed prior 72 hours Category Date Time Status MR angio head wo con [MR] Routine MRI 03/19/17 10:36 Draft MR angio neck wo con [MR] Routine MRI 03/19/17 Draft - Notes to Outpatient Provider Pt was found severe Rt ICA stenosis, Seek immediate medical attention if he develops any recurrent signs or symptoms of CVA, TIA or amaurosis fugax. Date of admission: 03/18/17 13:17 Primary care physician: Jasper Chauhan Consults: 03/19/17 15:13 Consult to Vascular Surgery [CONS] Routine Consulting Provider: Vascular Surgery Keke Reason for Consult: right ICA proximal stenosis, with CVA Time Notified: 15:21 Call Completed: No Discharging clinician: Shilo Yancey Anticipated date of discharge: 03/19/17 - Patient Status Disposition: Home, Self-Care Condition: Good Functional capacity at discharge: independent ambulation Overall status at discharge: patient is back to baseline - Discharge Instructions Follow Up With: Leda Slaughter DO [Primary Care Provider] - 03/28/17 1:30 pm Sudhakar Leo MD [Partnered Physician] - 04/09/17 10:15 am - Diet and Activity Activity: increase activity as tolerated Diet: diabetic diet Interval History: HPI: Mr. Newell is a 77 year old male past medical history of COPD CAD with stent placement diabetes hyperlipidemia hypertension and TIA in the past. Patient reports that yesterday he was getting off his lawnmower in his left hip gave out and he fell to the ground and landed on his right greater trochanter. He states he needs a left hip replacement and does not come in for a prescription to give out. He has been experiencing a significant pain as well as ecchymosis to the lower back and right hip. He has been able to ambulate but with some difficulty. The loss of control by her bladder. Also arches fall patient had been experiencing numbness to his left side. He reports left-sided numbness tingling to his pain is from his left eye down to his jaw is not completely numb he does not have any difficulty chewing swallowing or speaking there is no facial droop. He also complains of numbness in his left second and third digit dorsum of his hand up to his wrist this is also transient and has resolved. He describes that his left leg will at times feel heavy as if there is cemented on it. He denies any vision changes at this time however last month he experienced a transient loss of his right entire visual field. This spontaneously resolved He saw his news photographer who did clean his cataract lens and checked him for diabetic retinopathy states the back of his eye looked good. He presented to the ER with the above complaints. In the ER CT of head was obtained which did show a small right [place] infarct. Chest x- ray with no acute process. Head CT with no acute changes no fractures. CT of spine with degenerative changes nothing acute. Troponin was 0.01 mag was 1.6 with of his lab work was unremarkable. He was given a baby aspirin has been admitted for further work up evaluation. Victor Hugo patient does not appear to be in any respiratory distress he denies A chest pain or soreness of breath. He is alert and appropriate there is no facial droop noted no slurred speech. No focal deficits noted. Cranial nerves II through XII are intact. Romberg was negative. Patient was able to ambulate her he felt a little unsteady. He denies any numbness or tingling at this time His lung sounds are clear heart sounds are regular S1 and S2 with no rubs clicks, murmurs noted abdomen soft nontender he did have some ecchymosis to his right hip to right thigh.. No pedal edema noted. He hemodynamically stable Hospital course: Mr. Newell is a 77 year old male admitted for right-sided weakness and fall. MRI shows acute watershed area infarct. Patient was placed on continuous cardiac monitoring, echocardiogram, duplex carotid. Neurologic consult was called and saw patient. MRA neck ordered and shows Severe rt ICA stenosis. Vascular surgeon was called and is scheduled endarterecomy as outpatient on next Friday. Patient will discharge home with aspirin and Plavix, per vascular surgeon. I saw and examined the patient today. Patient is awake alert, oriented 3. No significant neuro deficit identified. Vitals are stable. PT OT evaluation suggests a home discharge. Patient has good home support with his . Patient will discharge home and to follow-up with PCP and neurology and vascular surgeon as outpatient. - Time Spent with Patient Total time spent providing and/or coordinating discharge services: 25 minutes Less than 30 minutes - Constitutional Vitals: Temp Pulse Resp BP Pulse Ox 97.7 F 59 16 166/86 98 03/19/17 11:38 03/19/17 11:38 03/19/17 11:38 03/19/17 17:23 03/19/17 11:38 General appearance: Present: A&O X 3, answers questions appropriately - Head Head exam: Present: atraumatic, normocephalic - Eye Eye exam: Present: PERRL, conjuntiva pink, sclera anicteric Pupils: Present: PERRL - Neck Neck exam general surgery: Present: supple, trachea midline. Absent: lymphadenopathy - Respiratory Respiratory exam: Present: CTAB. Absent: accessory muscle use, rales, rhonchi, wheezes - Cardiovascular Cardiovascular exam: Present: RRR, +S1, +S2. Absent: diastolic murmur, gallop, rubs, systolic murmur - GI/Abdominal GI/Abdominal exam: Present: normal bowel sounds, soft, no peritoneal signs. Absent: distended, tenderness - Extremities Exam Extremities exam: Present: warm, radial pulses palpable and symmetrical. Absent : calf tenderness, cyanotic, pedal edema - Neurological Exam Neurological exam: Present: CN II-XII intact, oriented X3, no focal deficits. Absent: pronater drift, facial droop, speech deficit - Skin Skin exam: Present: dry, intact
== END 2017-03-19 18:45 | disposition home or self-care (01) | DRG 65 ==
LOC: EMEROO 11:36 → 2NENU 11:36
PROVIDERS: ADMIT Internal Medicine; ATTEND Internal Medicine

== ENCOUNTER 2017-03-23 19:22 | Inpatient (IN) ==
--- NOTE | 2017-03-23 19:37 | Emergency Department Note ---
Disposition Clinical Impression: CVA (cerebral vascular accident) Qualifiers: CVA mechanism: unspecified Qualified Code(s): I63.9 - Cerebral infarction, unspecified Disposition: Admitted As Inpatient Condition: Good Referrals: Leda Slaughter DO [Primary Care Provider] - Time of Disposition: 23:29 General Adult HPI - General Stated complaint: Neuro Time Seen by Provider: 03/23/17 19:25 Source: patient, family Mode of arrival: ambulatory Limitations: no limitations Nursing Notes Reviewed: Yes Vital Signs Reviewed: Yes - History of Present Illness HPI Narrative: 77 year old male with known HX of stroke that was diagnosed last week and discharge from the hospital on a few days ago states that he is scheduled to have carotid surery on the right side by Dr. Jesus and was instruced that if he has increased facial numbness than he would need to return to the ED immeadiately for evauation and managment of progressive stroke-like symptoms. PAtinet states that around 1500 this today he notcied some incresed left sided facial numbness and that his right began to blur more, although this blurrines to his right eye is chronic. the facial numbness and the blurriness to his vision has resolved. He is currently asymptomatic. he is currently on plavix therapy for his recent stroke, which has not left him with any known defecits. - Related Data Home Medications Medication Instructions Recorded Confirmed Clopidogrel [Plavix] 75 mg PO DAILY 03/17/17 03/17/17 Insulin NPH Human Isophane 20 unit SQ BIDWM 03/17/17 03/18/17 [Novolin N] Insulin Regular, Human [Novolin R] 20 unit SQ TIDAC 03/17/17 03/18/17 Lisinopril-HCTZ 20-12.5 [Prinzide 1 tab PO BID 03/17/17 03/17/17 20-12.5] Metoprolol [Lopressor] 25 mg PO BID 03/17/17 03/17/17 amLODIPine [Norvasc] 5 mg PO DAILY 03/17/17 03/17/17 Previous Rx's Medication Instructions Recorded Aspirin 81 mg PO DAILY #30 tab.chew 03/19/17 Atorvastatin [Lipitor] 40 mg PO HS #30 tablet 03/19/17 Allergies Allergy/AdvReac Type Severity Reaction Status Date / Time Iodinated Contrast- Oral and Allergy Hives Verified 03/17/17 11:40 IV Dye [Iodinated Contrast Media - Oral and] Constitutional: Denies: fever, chills, weakness, weight change Eyes: Denies: eye pain, eye discharge, vision change ENT ED: Denies: ear pain, throat pain, dental pain, hearing loss, epistaxis, congestion, dysphagia Cardiovascular: Denies: chest pain, palpitations, dyspnea on exertion, edema, syncope Respiratory: Denies: cough, dyspnea, wheezes, hemoptysis, stridor Gastrointestinal: Denies: abdominal pain, nausea, vomiting, diarrhea, constipation, hematemesis, melena, hematochezia Genitourinary: Denies: urgency, dysuria, frequency, hematuria Musculoskeletal: Denies: back pain, neck pain, arthralgia, myalgia Integumentary: Denies: rash, abrasion, lesions Neurological: Reports: numbness, paresthesias. Denies: headache, weakness, confusion, abnormal gait, vertigo Psychiatric: Denies: anxiety, depression, suicidal thoughts, homicidal thoughts , auditory hallucinations, visual hallucinations Endocrine: Denies: fatigue Hematological/Lymphatic: Denies: easy bleeding, easy bruising Allergic/Immunologic: Denies: facial swelling, urticaria Past Medical History - Past Medical History Medical history: Reports: arthritis, cancer, COPD, coronary artery disease, diabetes, hyperlipidemia, hypertension, myocardial infarction, other Psychiatric history: Reports: no psych history - Social History Smoking Status: Former smoker Smokeless Tobacco Status: No Alcohol use: Reports: none Drug use: Reports: none Physical Exam - General Limitations: no limitations General appearance: alert, in no apparent distress - Head Head exam: atraumatic, normocephalic, normal inspection - Eye Eye exam: Present: normal appearance, PERRL, EOMI - Expanded Eye Exam Pupils: Left: reactive - ENT ENT exam: normal exam, normal oropharynx, mucous membranes moist - Expanded ENT Exam External ear exam: Present: normal external inspection Mouth exam: Present: normal external inspection Teeth exam: Present: normal inspection Throat exam: Present: normal inspection - Neck Neck exam: Present: normal inspection, full ROM, trachea midline - Chest Chest inspection: Present: normal inspection, symmetric chest wall rise - Respiratory Respiratory exam: Present: normal lung sounds bilaterally - Cardiovascular Cardiovascular exam: Present: regular rate, normal rhythm, normal heart sounds - Abdominal Exam Abdominal exam: Present: soft, Non-Tender. Absent: tenderness, distention, guarding, rebound, rigidity - Extremities Exam Extremities exam: Present: normal inspection, full ROM. Absent: tenderness, pedal edema - Expanded Upper Extremity Exam Shoulder exam: Present: normal inspection, full ROM Arm exam: Present: normal inspection, full ROM Elbow exam: Present: normal inspection, full ROM Forearm/Wrist exam: Present: normal inspection, full ROM Hand exam: Present: normal inspection, full ROM Vascular exam: Normal: capillary refill, radial pulse - Expanded Lower Extremity Exam Hip/Pelvis exam: Present: normal inspection, full ROM Upper leg exam: Present: normal inspection, full ROM Knee exam: Present: normal inspection, full ROM Lower leg exam: Present: normal inspection, full ROM Ankle exam: Present: normal inspection, full ROM Foot/toe exam: Present: normal inspection, full ROM Neurovascular/Tendon exam: Absent: motor deficit, sensory deficit, tendon deficit - Back Exam Back exam: Present: normal inspection, full ROM. Absent: tenderness - Neurological Exam Neurological exam: Present: alert, oriented X3 - Expanded Neurological Exam Patient oriented to: Present: person, place, time Speech: Present: fluid speech Cranial nerves: EOM function (II, III, IV, ): Normal, facial sensation (V): Normal, facial palsy (VII): Normal, gag reflex (IX): Normal, spinal accessory function (XI): Normal, tongue deviation (XII): Normal Cerebellar function: finger to nose: Normal, heel to sullivan: Normal Cerebellar function: normal gait, Romberg normal Motor strength - LUE: 4/5 Motor strength - RUE: 4/5 Motor strength - LLE: 4/5 Motor strength - RLE: 4/5 Upper motor neuron exam: palmira neglect: Absent bilaterally, pronator drift: Absent bilaterally, Babinski sign: Absent bilaterally, sensory extinction: Absent bilaterally Sensory exam upper extremity: light touch: Normal, pin prick: Normal Sensory exam lower extremity: light touch: Normal, pin prick: Normal Coma Scale Eye Opening: Spontaneous Coma Scale Motor Response: Obeys Commands Coma Scale Verbal Response: Oriented Coma Scale Total: 15 - Psychiatric Psychiatric exam: Present: normal affect, normal mood - Skin Skin exam: Present: warm, dry, intact, normal color Course Course Narrative: we will do CT/MR and consult vascualr surgery. - Reevaluation(s) Reevaluation #1: updated patient and we will admit to medicine, he is agreeable to plan Time: 22:31 - Consultations Consultation #1: discussed case with Dr. Bird and we will admit to medicine. He asked for the consutl to go into Dr. Jesus. Unfortauntely this will delay his cartoid surgery Time: 22:30 Consultation #2: discussed case with Dr Olguin and she accepst patinet to her service Time: 23:28 Vital Signs Temperature 98.5 F 03/23/17 19:36 Pulse Rate 62 03/23/17 19:36 Respiratory Rate 18 03/23/17 19:36 Blood Pressure 174/78 03/23/17 19:36 O2 Sat by Pulse Oximetry 99 03/23/17 19:36 Temperature 98.5 F 03/23/17 19:36 Pulse Rate 57 03/23/17 22:49 Respiratory Rate 14 03/23/17 22:49 Blood Pressure 161/65 03/23/17 22:49 O2 Sat by Pulse Oximetry 98 03/23/17 22:49 Oxygen Delivery Oxygen Delivery Room Air Medical Decision Making - Medical Records Medical records reviewed: Yes I reviewed the patient's medical records. - Lab Data Lab results reviewed: Yes I reviewed the patient's lab results. Result diagrams: 03/23/17 20:28 03/23/17 20:28 Lab Results 03/23/17 03/23/17 03/23/17 Range/Units 20:28 20:28 20:28 WBC 7.3 (4.3-11.1) K/mcL RBC 4.51 (4.19-5.50) M/mcL Hgb 13.9 (12.9-16.9) g/dL Hct 41.1 (37.5-50.1) % MCV 91.1 (83.0-100.0) fL MCH 30.8 (28.0-33.3) pg MCHC 33.8 (31.6-35.5) g/dL RDW 12.4 (11.5-14.5) % Plt Count 157 (140-400) K/mcL MPV 10.5 (9.4-12.4) fL Immature Gran % 0.4 (0-4) % Seg Neutrophils % 64.1 % Lymphocytes % 23.4 % Monocytes % 10.9 % Eosinophils % 0.8 % Basophils % 0.4 % Neutrophils # 4.7 (1.6-8.9) K/mcL Lymphocytes # 1.7 (0.6-4.6) K/mcL Monocytes # 0.8 (0.0-1.3) K/mcL Eosinophils # 0.1 (0.0-0.6) K/mcL Basophils # 0.0 (0.0-0.2) K/mcL PT 11.2 (9.4-12.1) Seconds INR 1.0 APTT 27.9 (26.0-36.0) Seconds Sodium 140 (136-145) mEq/L Potassium 4.1 (3.5-4.5) mEq/L Chloride 104 (98-109) mEq/L Carbon Dioxide 28 (19-29) mEq/L BUN 18 (8-26) mg/dL Creatinine 0.95 (0.72-1.25) mg/dL Est GFR ( Amer) > 60 (> 60) Est GFR (Non-Af Amer) > 60 (> 60) BUN/Creatinine Ratio 19 (6-26) Glucose 89 (70-99) mg/dL POC Glucose (58-89) Calculated Osmolality 291 (280-300) Calcium 9.3 (8.6-10.8) mg/dL Total Bilirubin 1.0 (0.2-1.2) mg/dL AST 24 (5-34) Units/L ALT 24 (0-55) Units/L Alkaline Phosphatase 93 (38-126) Units/L Troponin I (0-0.03) ng/mL Serum Total Protein 7.0 (6.0-8.3) g/dL Albumin 3.7 (3.5-5.0) g/dL Globulin 3.3 (2.4-3.5) g/dL Albumin/Globulin Ratio 1.1 (1.1-2.2) 03/23/17 03/23/17 Range/Units 20:28 21:01 WBC (4.3-11.1) K/mcL RBC (4.19-5.50) M/mcL Hgb (12.9-16.9) g/dL Hct (37.5-50.1) % MCV (83.0-100.0) fL MCH (28.0-33.3) pg MCHC (31.6-35.5) g/dL RDW (11.5-14.5) % Plt Count (140-400) K/mcL MPV (9.4-12.4) fL Immature Gran % (0-4) % Seg Neutrophils % % Lymphocytes % % Monocytes % % Eosinophils % % Basophils % % Neutrophils # (1.6-8.9) K/mcL Lymphocytes # (0.6-4.6) K/mcL Monocytes # (0.0-1.3) K/mcL Eosinophils # (0.0-0.6) K/mcL Basophils # (0.0-0.2) K/mcL PT (9.4-12.1) Seconds INR APTT (26.0-36.0) Seconds Sodium (136-145) mEq/L Potassium (3.5-4.5) mEq/L Chloride (98-109) mEq/L Carbon Dioxide (19-29) mEq/L BUN (8-26) mg/dL Creatinine (0.72-1.25) mg/dL Est GFR ( Amer) (> 60) Est GFR (Non-Af Amer) (> 60) BUN/Creatinine Ratio (6-26) Glucose (70-99) mg/dL POC Glucose 84 (58-89) Calculated Osmolality (280-300) Calcium (8.6-10.8) mg/dL Total Bilirubin (0.2-1.2) mg/dL AST (5-34) Units/L ALT (0-55) Units/L Alkaline Phosphatase (38-126) Units/L Troponin I 0.00 (0-0.03) ng/mL Serum Total Protein (6.0-8.3) g/dL Albumin (3.5-5.0) g/dL Globulin (2.4-3.5) g/dL Albumin/Globulin Ratio (1.1-2.2) - Radiology Data Radiology results reviewed: Yes I reviewed the patient's radiology results. - EKG Data EKG #1 EKG attestation: Yes I reviewed and interpreted this EKG. EKG results narrative: sinus bradycardia with rate of 51. no change from 03/17/17. NO STEMI. normla intervals. 1943
[2017-03-23 20:36] LABS: Basophils % 0.4 %; Eosinophils # 0.1 K/mcL (0.0-0.6); Eosinophils % 0.8 %; Hematocrit 41.1 % (37.5-50.1); Hemoglobin 13.9 g/dL (12.9-16.9); Immature Granulocytes % 0.4 % (0-4); Lymphocytes # 1.7 K/mcL (0.6-4.6); Lymphocytes % 23.4 %; Mean Corpuscular HGB Conc 33.8 g/dL (31.6-35.5); Mean Corpuscular Hemoglobin 30.8 pg (28.0-33.3); Mean Corpuscular Volume 91.1 fL (83.0-100.0); Mean Platelet Volume 10.5 fL (9.4-12.4); Monocytes # 0.8 K/mcL (0.0-1.3); Monocytes % 10.9 %; Neutrophils # 4.7 K/mcL (1.6-8.9); Platelet Count 157 K/mcL (140-400); Red Blood Count 4.51 M/mcL (4.19-5.50); Red Cell Distribution Width 12.4 % (11.5-14.5); Segmented Neutrophils % 64.1 %
[2017-03-23 20:41] LABS: Prothrombin Time 11.2 Seconds (9.4-12.1)
[2017-03-23 20:44] LABS: Activated Partial Thrombo Time 27.9 Seconds (26.0-36.0)
[2017-03-23 20:51] LABS: Alanine Aminotransferase 24 Units/L (0-55); Albumin 3.7 g/dL (3.5-5.0); Albumin/Globulin Ratio 1.1 (1.1-2.2); Alkaline Phosphatase 93 Units/L (38-126); Aspartate Amino Transferase 24 Units/L (5-34); BUN/Creatinine Ratio 19 (6-26); Blood Urea Nitrogen 18 mg/dL (8-26); Calcium 9.3 mg/dL (8.6-10.8); Carbon Dioxide 28 mEq/L (19-29); Chloride 104 mEq/L (98-109); Globulin 3.3 g/dL (2.4-3.5); Glucose 89 mg/dL (70-99); Osmolality,Calculated 291 (280-300); Potassium 4.1 mEq/L (3.5-4.5); Sodium 140 mEq/L (136-145); eGFR For African Americans > 60 (> 60); eGFR For Non-African Americans > 60 (> 60)
[2017-03-23] MEDS ORDERED: Aspirin 81 MG TAB.CHEW PO ONE (22:31)
[2017-03-24] MEDS ORDERED: Naloxone 0.4 MG/ML INJ IVP PRN (01:23)
[2017-03-24] MEDS ORDERED: Ondansetron 4 MG/2 ML VIAL IVP PRN (01:23)
[2017-03-24] MEDS ORDERED: Dextrose Gel 15 GM PO PRN ×2 (01:32)
[2017-03-24] MEDS ORDERED: D5% in Water 1,000 ML IVC PRN (01:32)
[2017-03-24] MEDS ORDERED: *HR* Dextrose 50 % in Water (Syg) 50 ML SYRINGE IVP PRN (01:32)
[2017-03-24] MEDS ORDERED: Insulin LISPRO 300 UNITS/3 ML VIAL SQ SCH ×2 (01:45→07:30)
--- NOTE | 2017-03-24 02:24 | Internal Med History&Physical ---
Date of Encounter: 03/24/17 Time of Encounter: 02:04 Assessment and Plan (1) TIA (transient ischemic attack) Current visit: No Status: Acute Left facial numbness and right eye vision loss-Resolved MRI brain: 1. Single new 3 mm acute infarct within the subcortical white matter of the right temporal lobe. 2. Multiple stable subacute infarcts within the subcortical and deep white matter of the right frontal and parietal lobes. 3. No acute intracranial hemorrhage. 2D echo from 03/18/17: Normal LV systolic function with LVEF of 55-60%, normal right ventricular size and function, no significant valvular dysfunction Carotid Duplex from 03/18/17: Bilateral proximal ICA has nonstenotic plaque Pt was recently started on Plavix in addition to his home dose of ASA for CVA ppx will continue Aspirin, Plavix,and Lipitor Neurology consultation requested Vascular surgery consultation with Dr. Jesus requested PT/OT evaluation pt cleared bedside speech evaluation continue tele monitoring Qualifiers: Transient cerebral ischemia type: unspecified Qualified Code(s): G45.9 - Transient cerebral ischemic attack, unspecified (2) Hypertension Current visit: No Status: Chronic BP within acceptable range continue home medications Qualifiers: Hypertension type: essential hypertension Qualified Code(s): I10 - Essential (primary) hypertension (3) Diabetes mellitus Current visit: No Status: Chronic continue home insulin regimen added low dose sliding scale insulin algorithm monitor FS and BG ADA diet Qualifiers: Diabetes mellitus type: type 2 Diabetes mellitus complication status: without complication Diabetes mellitus shelter insulin use: with termite exterminator use Qualified Code(s): E11.9 - Type 2 diabetes mellitus without complications ; Z79.4 - manager intermediate (current) use of insulin (4) Hyperlipidemia Current visit: No Status: Chronic continue statin Qualifiers: Hyperlipidemia type: unspecified Qualified Code(s): E78.5 - Hyperlipidemia , unspecified (5) Coronary artery disease Current visit: No Status: Chronic no signs of angina present at this time continue home medications Qualifiers: Coronary Disease-Associated Artery/Lesion type: bypass graft [place] vs. transplanted heart: [place] heart Associated angina: without angina Qualified Code(s): I25.810 - Atherosclerosis of coronary artery bypass graft(s) without angina pectoris (6) DVT prophylaxis Current visit: No Status: Acute Heparin SQ (7) CVA (cerebral vascular accident) Current visit: No Status: Chronic Qualifiers: CVA mechanism: unspecified Qualified Code(s): I63.9 - Cerebral infarction, unspecified Internal Medicine - H&P: HPI Chief complaint: facial numbness Admitted From: Home Plans for Post Hospital Care: Home History of present illness: Mr. Newell is a 77 year old male with PMH of CVA with no residual weakness, DM, CAD, HTN, HLD who presents to the ER for new onset left face numbness and right eye vision loss. Pt was discharged from the ER on 03/19/17 after being evaluated for a TIA and is scheduled to undergo carotid endearterctomy with Dr. Jesus this coming Friday. Pt states he was instructed upon discharge to return to the hospital if any neurological deficits occur. Upon arrival to the ER his symptoms began to resolve and during my evaluation, he had complete resolution of his presenting symptoms. He had a MR brain in the ER which reported new 3mm acute infarct within the subcortical white matter of the right temporal lobe. At this time, patient is resting comfortably in bed and back to his baseline. He denies any headache, dizziness, lightheadedness, chest pain, sob, abd pain, n /v, fever, or chills. Code status: Full code Past Med Surg Social Fam HX - Past Medical History Medical history: arthritis, cancer, coronary artery disease, diabetes, hyperlipidemia, hypertension, other Psychiatric history: no psych history - Social History Smoking Status: Former smoker Smokeless Tobacco Status: No Alcohol use: none Drug use: none - Family History Father Living Status: Hx Family Neurologic Disorders: Yes (History of stroke) Mother Living Status: Internal Medicine - H&P: Meds Clopidogrel [Plavix] 75 mg PO DAILY 03/17/17 [History] Insulin NPH Human Isophane [Novolin N] 20 unit SQ BIDWM 03/17/17 [History] Insulin Regular, Human [Novolin R] 20 unit SQ TIDAC 03/17/17 [History] Lisinopril-HCTZ 20-12.5 [Prinzide 20-12.5] 1 tab PO BID 03/17/17 [History] Metoprolol [Lopressor] 25 mg PO BID 03/17/17 [History] amLODIPine [Norvasc] 5 mg PO DAILY 03/17/17 [History] Aspirin 81 mg PO DAILY #30 tab.chew 03/19/17 [Rx] Atorvastatin [Lipitor] 40 mg PO HS #30 tablet 03/19/17 [Rx] 3 Allergy/AdvReac Type Severity Reaction Status Date / Time Iodinated Contrast- Oral and Allergy Hives Verified 03/17/17 11:40 IV Dye [Iodinated Contrast Media - Oral and] All Systems PM: A 10-system review of systems was performed and is negative for pertinent findings except as documented above in the HPI. - Constitutional Constitutional: as per HPI - Constitutional Vitals: Temp Pulse Resp BP Pulse Ox 97.8 F 51 14 159/75 97 03/24/17 01:34 03/24/17 01:38 03/24/17 01:34 03/24/17 01:34 03/24/17 01:16 General appearance: Present: cooperative, A&O X 3, pleasant, no acute distress, obese, answers questions appropriately - Head Head exam: Present: atraumatic, normocephalic - Eye Eye exam: Present: conjuntiva pink, sclera anicteric - Respiratory Respiratory exam: Present: CTAB. Absent: accessory muscle use, rales, rhonchi, wheezes - Cardiovascular Cardiovascular exam: Present: RRR, +S1, +S2. Absent: diastolic murmur, gallop, rubs, systolic murmur - GI/Abdominal GI/Abdominal exam: Present: normal bowel sounds, soft, no peritoneal signs. Absent: distended, tenderness - Extremities Exam Extremities exam: Present: warm, radial pulses palpable and symmetrical. Absent : calf tenderness, cyanotic, pedal edema - Neurological Exam Neurological exam: Present: alert, CN II-XII intact, oriented X3, strengths equal and symetr throughout. Absent: pronater drift, facial droop, speech deficit - Psychiatric Psychiatric exam: Present: normal affect, normal mood Internal Med - H&P Results - Labs CBC & Chem 7: 03/23/17 20:28 03/23/17 20:28
[2017-03-24 03:37] LABS: Basophils % 0.3 %; Eosinophils # 0.1 K/mcL (0.0-0.6); Eosinophils % 1.6 %; Hematocrit 37.7 % (37.5-50.1); Hemoglobin 12.9 g/dL (12.9-16.9); Immature Granulocytes % 0.4 % (0-4); Lymphocytes # 1.9 K/mcL (0.6-4.6); Lymphocytes % 27.6 %; Mean Corpuscular HGB Conc 34.2 g/dL (31.6-35.5); Mean Corpuscular Hemoglobin 31.7 pg (28.0-33.3); Mean Corpuscular Volume 92.6 fL (83.0-100.0); Mean Platelet Volume 10.7 fL (9.4-12.4); Monocytes # 0.8 K/mcL (0.0-1.3); Monocytes % 11.2 %; Neutrophils # 4.1 K/mcL (1.6-8.9); Platelet Count 138 K/mcL (140-400); Red Blood Count 4.07 M/mcL (4.19-5.50); Red Cell Distribution Width 12.3 % (11.5-14.5); Segmented Neutrophils % 58.9 %
[2017-03-24 04:13] LABS: BUN/Creatinine Ratio 15 (6-26); Blood Urea Nitrogen 15 mg/dL (8-26); Calcium 8.7 mg/dL (8.6-10.8); Carbon Dioxide 27 mEq/L (19-29); Chloride 103 mEq/L (98-109); Chol/HDL Ratio 3.6 (0-4.9); Cholesterol 94 mg/dL (< 200); Glucose 281 mg/dL (70-99); HDL Cholesterol 26 mg/dL (40-59); LDL Cholesterol,Calculated 39 mg/dL (0-99); Magnesium 1.7 mg/dL (1.6-2.6); Osmolality,Calculated 293 (280-300); Phosphorous 2.4 mg/dL (2.3-4.7); Potassium 3.7 mEq/L (3.5-4.5); Sodium 136 mEq/L (136-145); Triglycerides 146 mg/dL (< 150); eGFR For African Americans > 60 (> 60); eGFR For Non-African Americans > 60 (> 60)
[2017-03-24] MEDS ORDERED: *HR* Heparin 5,000 UNIT/ML VIAL SQ SCH (06:00)
[2017-03-24] MEDS: Aspirin 81 MG TAB.CHEW PO SCH (08:41)
--- NOTE | 2017-03-24 08:41 | Neurology - Consult Note ---
<Nato Sanders - Last Filed: 03/24/17 08:33> Date of Encounter: 03/24/17 Time of Encounter: 08:00 Assessment and Plan (1) CVA (cerebral vascular accident) Current Visit: Yes Status: Acute Patient presents with new neurological symptoms including right eye vision loss and left facial numbness. MRI of the brain performed showed acute, 3 mm infarct in the subcortical white matter of the right temporal lobe. In multiple subacute infarcts in the right frontal parietal lobes. Patient had just been hospital for CVA and found to have severe right-sided carotid stenosis. For the previous documentation patient had stopped his Plavix one week prior to the previous event, but restarted after that event. Patient has had near full resolution of his neurologic symptoms, was continued and have reports of left facial numbness even though neurologic exam was unremarkable. He has appointment with Dr. Jesus this Friday to address his right carotid stenosis which is likely the source of his apparent right- sided embolic cerebral events. Continue aspirin and Plavix Continue Lipitor Recommend PT/OT evaluation, even though patient reports resolution of symptoms Consult to vascular surgery ordered Qualifiers: CVA mechanism: unspecified Qualified Code(s): I63.9 - Cerebral infarction, unspecified (2) Carotid stenosis, right Current Visit: Yes Status: Chronic History of Present Illness Chief complaint: L. Facial numbness and R. eye vision loss HPI: Mr. Newell is a 77 year old male with past medical history of diabetes mellitus , coronary artery disease (with CABG in 1997), hypertension, hyperlipidemia, and prior CVA (with no residual defect) who presented to [place] on 03/23/17 after having onset of left facial numbness and right eye vision loss related that day. Patient had been discharged from hospital on 03/19/17 after suffering from a CVA at that time. According to his last visit he had been having left-sided numbness and heaviness with reports of recent falls. At that time he was found to have acute infarcts on the right frontal and parietal lobes as seen on MRI. He underwent a head and neck MRA which showed high-grade stenosis of his right carotid artery. Prior to his last admission he had stopped his Plavix for roughly 1 week. Patient reports that starting yesterday afternoon he began experiencing left facial numbness and had vision loss/blurriness in his right eye. He states that he was mostly recovered after 15 minutes, having had resolution of his ocular complaints and improvement in his left facial numbness. Hip previously been told, as last admission, but he should return to the hospital if he develops any new neurological symptoms. When seen this morning patient reports having some residual left facial numbness as well as pain the rest of his throat with swallowing, but he denies having any other sensation deficits, ocular complaints or weakness. Past Med Surg Social Fam HX - Past Medical History Medical history: arthritis, cancer, coronary artery disease, diabetes, hyperlipidemia, hypertension, other Psychiatric history: no psych history - Social History Smoking Status: Former smoker Smokeless Tobacco Status: No Alcohol use: none Drug use: none - Family History Father Living Status: Hx Family Neurologic Disorders: Yes (History of stroke) Mother Living Status: Medications and Allergies Clopidogrel [Plavix] 75 mg PO DAILY 03/17/17 [History] Insulin NPH Human Isophane [Novolin N] 20 unit SQ BIDWM 03/17/17 [History] Insulin Regular, Human [Novolin R] 20 unit SQ TIDAC 03/17/17 [History] Lisinopril-HCTZ 20-12.5 [Prinzide 20-12.5] 1 tab PO BID 03/17/17 [History] Metoprolol [Lopressor] 25 mg PO BID 03/17/17 [History] amLODIPine [Norvasc] 5 mg PO DAILY 03/17/17 [History] Aspirin 81 mg PO DAILY #30 tab.chew 03/19/17 [Rx] Atorvastatin [Lipitor] 40 mg PO HS #30 tablet 03/19/17 [Rx] 3 Allergy/AdvReac Type Severity Reaction Status Date / Time Iodinated Contrast- Oral and Allergy Hives Verified 03/24/17 09:03 IV Dye [Iodinated Contrast Media - Oral and] - Constitutional Constitutional ROS IM: as per HPI, frequent falls, no chills, no fever(s), no headache(s), no weakness - Eyes Eyes: right: blurred vision (Now resolved), loss of vision (Now resolved) - Nose, Mouth, Throat Nose, mouth and throat: sore throat (As per history of present illness), no disequilibrium, no mouth pain - Cardiovascular Cardiovascular ROS IM: no chest pain, no diaphoresis, no edema, no palpitations - Musculoskeletal Musculoskeletal ROS IM: abnormal gait (Uses cane because of left-sided pain), numbness (As per history of present illness), no muscle weakness, no neck pain, no tingling - Integumentary Integumentary IM: other (Ecchymosis on right hip) Physical Examination - Vital Signs Vital Signs: Initial Vital Signs Temp Pulse Resp BP Pulse Ox 98.5 F 62 18 174/78 99 03/23/17 19:36 03/23/17 19:36 03/23/17 19:36 03/23/17 19:36 03/23/17 19:36 - Constitutional General appearance: comfortable - Neurologic Sensorimotor examination: intact Detailed motor examination: grossly full strength in all extremities, full strength in all major muscle groups Motor examination - right side: 5/5: deltoids, biceps, triceps, ip attorney, hip flexors, tibialis Anterior, toe extension (EHL), plantarflexion Motor examination - left side: 5/5: deltoids, biceps, triceps, hip flexors, ip attorney , tibialis Anterior, toe extension (EHL), plantarflexion Detailed sensory examination: intact, light touch Reflex and gait examination: other (Left-sided limp/chronic left hip pain) Reflexes: Biceps: 1+, Triceps: 1+, Brachioradialis: 1+, Patella: 1+, Achilles: 1 + Mental Status Examination: awake, alert, oriented to person, oriented to place, oriented to time, follows commands appropriately, answers questions appropriately Cranial nerve examination: PERRL, EOMI, visual cifuentes intact, sensory to face intact, no facial asymmetry is present, no dysarthria, hearing is intact symmetrically, flexes SCM and trapezius muscles symmetrically with full power, tongue protrudes midline, no atrophy or facial fasiculations present Cerebellar examination: performs finger to nose and heel to sullivan symmetrically without ataxia, no gait ataxia (Walks with cane, left-sided pain), no truncal ataxia, no difficulty with rapid alternating movements Results - Laboratory Findings CBC and BMP: 03/24/17 03:21 03/24/17 03:21 Abnormal lab findings: Abnormal lab results RBC 4.07 M/mcL (4.19-5.50) L 03/24/17 03:21 Plt Count 138 K/mcL (140-400) L 03/24/17 03:21 Glucose 281 mg/dL (70-99) H 03/24/17 03:21 POC Glucose 239 (58-89) H 03/24/17 01:24 HDL Cholesterol 26 mg/dL (40-59) L 03/24/17 03:21 Consult Discharge Plan - Plan Referrals: Leda Slaughter DO [Primary Care Provider] - 04/04/17 9:45 am (Please follow up with your primary care provider [phone]) <Sonu Valenzuela - Last Filed: 03/24/17 16:57> Date of Encounter: 03/24/17 Time of Encounter: 16:38 Assessment and Plan (1) CVA (cerebral vascular accident) Current Visit: Yes Status: Acute Pt has had another episode of cerebral ischemia involving the right cerebral hemisphere resulting from the ipsilateral ICA stenosis. I agree with heprin drip without bolus. I would recommend permissive HTN, however not to exceed a systolic of >150. Other stroke protocol orders should be implemented. Agree with CEA sooner rather than later. Would resume plavix after CEA.Continue statins and antihypertensives. Risk factor monitoring after discharge. Qualifiers: CVA mechanism: embolism Precerebral and cerebral artery: carotid artery History of Present Illness HPI: The chart was reviewed, the pt. was seen and examined independently along with Dr. Sanders. I agree with his hx as stated above. All Systems: A 10-system review of systems was performed and is negative for pertinent findings except as documented above in the HPI. Physical Examination - Vital Signs Vital Signs: Initial Vital Signs Temp Pulse Resp BP Pulse Ox 98.5 F 62 18 174/78 99 03/23/17 19:36 03/23/17 19:36 03/23/17 19:36 03/23/17 19:36 03/23/17 19:36 - Exam Exam: Cerebral functions- AAO x 3, follows commands and answers questions appropriately without difficulty. No agnosia, aphasia or apraxia. CN II-XII intact. Motor- Slight decrease in tone of the LUE and LLE. RUE/RLE normal bulk and tone. No involuntary movements or atrophy. Results - Laboratory Findings CBC and BMP: 03/24/17 12:46 03/24/17 03:21 Abnormal lab findings: Abnormal lab results Glucose 281 mg/dL (70-99) H 03/24/17 03:21 POC Glucose 239 (58-89) H 03/24/17 01:24 HDL Cholesterol 26 mg/dL (40-59) L 03/24/17 03:21
[2017-03-24] MEDS: Insulin LISPRO 300 UNITS/3 ML VIAL SQ SCH ×3 (08:58→16:58)
[2017-03-24] MEDS: Insulin NPH 100 UNIT/ML (x5UNIT) SQ SCH ×2 (09:00→16:58)
[2017-03-24] MEDS ORDERED: amLODIPine 5 MG TABLET PO SCH (09:00)
[2017-03-24] MEDS ORDERED: Lisinopril-HCTZ 20-12.5mg TABLET PO SCH (09:00)
--- NOTE | 2017-03-24 09:56 | Event Note ---
<Demetrius Urbina - Last Filed: 03/24/17 14:21> Date of Encounter: 03/24/17 Time of Encounter: 09:53 77 year old male evaluated at bedside. patient denies nausea, vomiting, diarrhea , fever, chills, chest pain, shortness of breath. he denies any further problems today. Physical Exam: general: alert and oriented x3, no acute distress. CV: RRR, no murmurs, rubs, or gallops Respiratory: CTAB Abdomen: firm, non distended, nontender, positive bowel sounds Extremities: no cyanosis, edema Neuro: cranial nerves 2-12 intact, no focal deficits, no facial drooping or speech slurring. muscle strength symmetrical. Assessment/Plan: 1. TIA: MRI brain showed single new 3mm acute infarct within the subcortical white matter of the right temporal lobe, multiple stable subacute infarcts within the subcortical and deep white matter of the right frontal and pariental lobes, no acute hemorrhage. Patient's deficits have resolved since admission. neurological exam does not show any deficits. of note, patient was just admitted to hospital last week for lacunar infarction. at that time, carotid duplex was ordered, bilateral proximal ICA non stenotic plaques found. At that time, carotid endarterectomy was scheduled outpatient and he was started on ASA and plavix. Plan: appreciate neurology input. holding all home blood pressure meds to allow for permissive hypertension. Vascular surgery has evaluated patient. He will be kept in the hospital until friday for right carotid endarterectomy. standard dose heparin gtt per vasclar surgery. 2. HTN holding all blood pressure meds to allow for permissive hypertension. 3. Diabetes Mellitus: resume home insulin and monitor. ADA diet. 4. HLD continue statin 5. CAD continue statin 6. CVA plan as #1 above 7. DVT prophylaxis: Heparin SQ <Ron Galeas - Last Filed: 03/24/17 19:01> Date of Encounter: 03/24/17 I examined this patient and my medical decision-making was reviewed with the Resident Physician, Dr. Urbina. I agree with the documented findings, disposition and treatment plan as described except to the extent set forth below. My findings are summarized below: Patient is awake alert and oriented 3. I find no gross focal neurological deficits. Plan: I discussed the plan with vascular surgery. The recommended starting heparin drip.
[2017-03-24] MEDS ORDERED: *HR* Heparin 5,000 UNIT/ML VIAL IVP ONE (12:26)
[2017-03-24] MEDS ORDERED: *HR* Heparin 5,000 UNIT/ML VIAL IVP PRN ×2 (12:26)
[2017-03-24 13:19] LABS: Hematocrit 41.2 % (37.5-50.1); Hemoglobin 13.7 g/dL (12.9-16.9); Mean Corpuscular HGB Conc 33.3 g/dL (31.6-35.5); Mean Corpuscular Hemoglobin 30.4 pg (28.0-33.3); Mean Corpuscular Volume 91.6 fL (83.0-100.0); Mean Platelet Volume 10.9 fL (9.4-12.4); Platelet Count 160 K/mcL (140-400); Red Cell Distribution Width 12.4 % (11.5-14.5)
[2017-03-24 13:24] LABS: INR 1.1; Prothrombin Time 11.9 Seconds (9.4-12.1)
--- NOTE | 2017-03-24 14:59 | Electrocardiograph Report ---
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
[2017-03-24] MEDS: Heparin 25,000 UNIT/500 ML D5W 25,000 UNIT/500 ML MLS IVC SCH (15:35)
[2017-03-24 22:39] LABS: Activated Partial Thrombo Time 137.6 Seconds (26.0-36.0)
[2017-03-24 23:05] LABS: Heparin anti-factor XA UFH 0.7 IU/mL (0.30-0.70)
[2017-03-25 06:57] LABS: Basophils % 0.1 %; Eosinophils # 0.1 K/mcL (0.0-0.6); Eosinophils % 0.9 %; Hematocrit 40.1 % (37.5-50.1); Hemoglobin 13.6 g/dL (12.9-16.9); Immature Granulocytes % 0.4 % (0-4); Lymphocytes # 1.5 K/mcL (0.6-4.6); Lymphocytes % 21.4 %; Mean Corpuscular HGB Conc 33.9 g/dL (31.6-35.5); Mean Corpuscular Hemoglobin 30.4 pg (28.0-33.3); Mean Corpuscular Volume 89.7 fL (83.0-100.0); Mean Platelet Volume 11.1 fL (9.4-12.4); Monocytes # 0.8 K/mcL (0.0-1.3); Monocytes % 10.8 %; Neutrophils # 4.6 K/mcL (1.6-8.9); Platelet Count 143 K/mcL (140-400); Red Blood Count 4.47 M/mcL (4.19-5.50); Red Cell Distribution Width 12.4 % (11.5-14.5); Segmented Neutrophils % 66.4 %
[2017-03-25 06:58] LABS: BUN/Creatinine Ratio 18 (6-26); Blood Urea Nitrogen 17 mg/dL (8-26); Calcium 9.2 mg/dL (8.6-10.8); Carbon Dioxide 26 mEq/L (19-29); Chloride 103 mEq/L (98-109); Glucose 239 mg/dL (70-99); Osmolality,Calculated 295 (280-300); Potassium 4.2 mEq/L (3.5-4.5); Sodium 138 mEq/L (136-145); eGFR For African Americans > 60 (> 60); eGFR For Non-African Americans > 60 (> 60)
[2017-03-25 07:20] LABS: Activated Partial Thrombo Time 123.7 Seconds (26.0-36.0)
[2017-03-25 07:25] LABS: Heparin anti-factor XA UFH 0.67 IU/mL (0.30-0.70)
[2017-03-25] MEDS: Aspirin 81 MG TAB.CHEW PO SCH (07:46)
[2017-03-25] MEDS: Insulin LISPRO 300 UNITS/3 ML VIAL SQ SCH ×3 (07:48→16:36)
--- NOTE | 2017-03-25 08:29 | Internal Med Progress Note ---
<Demetrius Urbina - Last Filed: 03/25/17 11:45> Date of Encounter: 03/25/17 Time of Encounter: 08:24 - Assessment and plan (1) TIA (transient ischemic attack) Current Visit: No Status: Acute Assessment and plan: MRI brain showed single new 3mm acute infarct within the subcortical white matter of the right temporal lobe, multiple stable subacute infarcts within the subcortical and deep white matter of the right frontal and pariental lobes, no acute hemorrhage. Patient's deficits have resolved since admission. neurological exam does not show any deficits. of note, patient was just admitted to hospital last week for lacunar infarction. at that time, carotid duplex was ordered, bilateral proximal ICA non stenotic plaques found. At that time, carotid endarterectomy was scheduled outpatient and he was started on ASA and plavix. Plan: appreciate neurology input. holding all home blood pressure meds to allow for permissive hypertension. Vascular surgery has evaluated patient. carotid endarterectomy tomorrow. holding plavix in preparation for surgery. standard dose heparin gtt without bolus NPO after midnight. Qualifiers: Transient cerebral ischemia type: amaurosis fugax Qualified Code(s): G45.3 - Amaurosis fugax (2) Hypertension Current Visit: No Status: Chronic Assessment and plan: holding all blood pressure meds to allow for permissive hypertension. Qualifiers: Hypertension type: essential hypertension Qualified Code(s): I10 - Essential (primary) hypertension (3) Diabetes mellitus Current Visit: No Status: Chronic Assessment and plan: resume home insulin and monitor. ADA diet. Qualifiers: Diabetes mellitus type: type 2 Diabetes mellitus complication status: without complication Diabetes mellitus mcfp insulin use: with mcfp use Qualified Code(s): E11.9 - Type 2 diabetes mellitus without complications ; Z79.4 - long term care pharmacist (current) use of insulin (4) Hyperlipidemia Current Visit: No Status: Chronic Assessment and plan: continue statin Qualifiers: Hyperlipidemia type: unspecified Qualified Code(s): E78.5 - Hyperlipidemia , unspecified (5) Coronary artery disease Current Visit: No Status: Chronic Assessment and plan: continue statin Qualifiers: Coronary Disease-Associated Artery/Lesion type: bypass graft [place] vs. transplanted heart: [place] heart Associated angina: without angina Qualified Code(s): I25.810 - Atherosclerosis of coronary artery bypass graft(s) without angina pectoris (6) CVA (cerebral vascular accident) Current Visit: Yes Status: Acute Assessment and plan: plan as #1 above Qualifiers: CVA mechanism: embolism Precerebral and cerebral artery: carotid artery Laterality of affected vessel: unspecified Qualified Code(s): I63.139 - Cerebral infarction due to embolism of unspecified carotid artery (7) DVT prophylaxis Current Visit: No Status: Acute Assessment and plan: heparin gtt without bolus. - Subjective Interval history: 77M evaluated at bedside. patient denies nausea, vomiting, diarrhea, fever, chills, chest pain, shortness of breath. - Constitutional Vitals: Temp Pulse Resp BP Pulse Ox 97.9 F 71 16 144/84 95 03/25/17 07:33 03/25/17 07:35 03/25/17 07:33 03/25/17 07:33 03/25/17 07:33 General appearance: Present: cooperative, A&O X 3, pleasant, no acute distress, obese, answers questions appropriately - Head Head exam: Present: atraumatic, normocephalic - Neck Neck exam general surgery: Present: supple, trachea midline - Respiratory Respiratory exam: Present: rales Additional comments: rales heard in lower lobes bilaterally. - Cardiovascular Cardiovascular exam: Present: RRR, +S1, +S2 - GI/Abdominal GI/Abdominal exam: Present: normal bowel sounds, soft. Absent: distended, tenderness - Extremities Exam Extremities exam: Absent: cyanotic, pedal edema - Neurological Exam Neurological exam: Present: alert, oriented X3, no focal deficits - Psychiatric Psychiatric exam: Present: normal affect, normal mood - Skin Skin exam: Present: intact. Absent: cyanosis Internal Medicine: Result - Labs CBC & Chem 7: 03/25/17 06:36 03/25/17 06:36 Labs: Short CBC 03/25/17 Range/Units 06:36 WBC 7.0 (4.3-11.1) K/mcL Hgb 13.6 (12.9-16.9) g/dL Hct 40.1 (37.5-50.1) % Plt Count 143 (140-400) K/mcL Neutrophils # 4.6 (1.6-8.9) K/mcL BMP 03/25/17 06:36 Sodium 138 Potassium 4.2 Chloride 103 Carbon Dioxide 26 BUN 17 Creatinine 0.96 Glucose 239 H Calcium 9.2 - ABG Interpretation ABG results: PT/INR, D-dimer PT 11.9 Seconds (9.4-12.1) 03/24/17 12:46 Consult Discharge Plan - Plan Referrals: Leda Slaughter DO [Primary Care Provider] - 04/04/17 9:45 am (Please follow up with your primary care provider [phone]) Ravindra Jesus MD [Partnered Physician] - 05/05/17 1:50 pm <Ron Galeas - Last Filed: 03/26/17 07:42> Date of Encounter: 03/25/17 - Constitutional Vitals: Temp Pulse Resp BP Pulse Ox 97.9 F 57 19 148/72 96 03/26/17 00:24 03/26/17 05:00 03/26/17 04:17 03/26/17 04:17 03/26/17 04:17 Internal Medicine: Result - Labs CBC & Chem 7: 03/26/17 04:48 03/26/17 04:48 Labs: Short CBC 03/26/17 Range/Units 04:48 WBC 5.7 (4.3-11.1) K/mcL Hgb 13.8 (12.9-16.9) g/dL Hct 40.5 (37.5-50.1) % Plt Count 140 (140-400) K/mcL Neutrophils # 3.3 (1.6-8.9) K/mcL BMP 03/26/17 04:48 Sodium 138 Potassium 4.1 Chloride 105 Carbon Dioxide 26 BUN 17 Creatinine 0.93 Glucose 201 H Calcium 9.4 - ABG Interpretation ABG results: PT/INR, D-dimer PT 11.9 Seconds (9.4-12.1) 03/24/17 12:46 - Attending Attestation I examined this patient and my medical decision-making was reviewed with the Resident Physician, Dr. Urbina. I agree with the documented findings, disposition and treatment plan as described except to the extent set forth below. I have independently obtained history and examined the patient and my findings are summarized below: Patient is awake alert and oriented. Heart exam reveals normal S1-S2, regular. Lung exam reveals diminished breath sounds at bases with fine crackles. Plan: Continue with heparin drip per vascular surgery. Incentive spirometry. Plan for carotid endarterectomy tomorrow. He is at high risk for morbidity and complications due to continuous IV heparin infusion which needs intensive monitoring of coagulation parameters.
--- NOTE | 2017-03-25 08:47 | Vascular/Endovasc Consult Note ---
Date of Encounter: 03/25/17 Time of Encounter: 12:15 Assessment and Plan (1) CVA (cerebral vascular accident) Current Visit: Yes Status: Acute The patient has sustained a new cerebral infarct. He was recently discharged after experiencing a cerebral infarction. He reports recurrent episodes of amaurosis fugax. He has an 80-99% right internal carotid artery stenosis. At this time, it is recommended that the patient be started on a heparin drip. He has been scheduled for a right carotid endarterectomy. The risks, benefits and alternatives were discussed and all questions were answered. He expressed understanding and all questions were answered. Qualifiers: CVA mechanism: unspecified Qualified Code(s): I63.9 - Cerebral infarction, unspecified (2) Carotid stenosis, right Current Visit: Yes Status: Chronic (3) Coronary artery disease Current Visit: No Status: Chronic Qualifiers: Coronary Disease-Associated Artery/Lesion type: bypass graft [place] vs. transplanted heart: [place] heart Associated angina: without angina Qualified Code(s): I25.810 - Atherosclerosis of coronary artery bypass graft(s) without angina pectoris (4) Diabetes mellitus Current Visit: No Status: Chronic He was counseled regarding atherosclerotic risk factor reduction. 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 Qualified Code(s): E11.9 - Type 2 diabetes mellitus without complications ; Z79.4 - [facility] (current) use of insulin (5) Hyperlipidemia Current Visit: No Status: Chronic Qualifiers: Hyperlipidemia type: unspecified Qualified Code(s): E78.5 - Hyperlipidemia , unspecified (6) Hypertension Current Visit: No Status: Chronic Qualifiers: Hypertension type: essential hypertension Qualified Code(s): I10 - Essential (primary) hypertension - History of Present Illness Consult date: 03/24/17 Requesting physician: Ron Galeas Consult reason: Symptomatic carotid stenosis Chief complaint: CVA, recurrent amaurosis fugax History of present illness: Mr. Newell is a 77 year old male with a history of coronary artery disease, hypertension, hyperlipidemia and diabetes. He has had multiple episodes of amaurosis fugax and was recently discharged from [facility] after a cerbrovascular accident with resolution of his symptoms. He was recently found to have an 80- 99% right internal carotid artery stenosis. He was readmitted to [facility] with recurrent symptoms of amaurosis fugax and MRI revealed a new infarct. The patient reports that his symptoms have now resolved. He denies any neurologic deficits. He is alert and comfortable. He denies chest pain or shortness of breath. Past Med Surg Social Fam HX - Past Medical History Medical history: arthritis, cancer, coronary artery disease, diabetes, hyperlipidemia, hypertension, other Psychiatric history: no psych history - Social History Smoking Status: Former smoker Smokeless Tobacco Status: No Alcohol use: none Drug use: none - Family History Father Living Status: Hx Family Neurologic Disorders: Yes (History of stroke) Mother Living Status: Medications and Allergies Clopidogrel [Plavix] 75 mg PO DAILY 03/17/17 [History] Insulin NPH Human Isophane [Novolin N] 20 unit SQ BIDWM 03/17/17 [History] Insulin Regular, Human [Novolin R] 20 unit SQ TIDAC 03/17/17 [History] Lisinopril-HCTZ 20-12.5 [Prinzide 20-12.5] 1 tab PO BID 03/17/17 [History] Metoprolol [Lopressor] 25 mg PO BID 03/17/17 [History] amLODIPine [Norvasc] 5 mg PO DAILY 03/17/17 [History] Aspirin 81 mg PO DAILY #30 tab.chew 03/19/17 [Rx] Atorvastatin [Lipitor] 40 mg PO HS #30 tablet 03/19/17 [Rx] 3 Allergy/AdvReac Type Severity Reaction Status Date / Time Iodinated Contrast- Oral and Allergy Hives Verified 03/24/17 09:03 IV Dye [Iodinated Contrast Media - Oral and] All Systems Review: A 10-system review of systems was performed and is negative for pertinent findings except as documented above in the HPI. Exam Vital Signs, Last 4 Hours Temp Pulse Resp BP Pulse Ox 03/25/17 07:35 71 03/25/17 07:33 97.9 F 76 16 144/84 95 General: Present: Conversant, No Apparent Distress HEENT: Present: Atraumatic, Normocephaly Neck: Present: Right Carotid bruit. Absent: JVD, Left Carotid bruit Cardiac: Present: Reg Rate and Rhythm, Normal S1 and S2, No Murmur Lungs: Present: Normal Breath Sounds, No Wheeze, Rales, Rhonchi Neuro: Present: Alert and responsive, No focal deficits noted, Cranial nerves grossly intact, Motor nerves grossly intact, Sensory nerves grossly intact Abdomen: Present: Soft, Non-tender. Absent: Masses Vascular: Present: Normal capillary refill, Pulse, normal. Absent: Cyanosis, Edema Skin: Present: No rashes noted on visualized skin. Absent: Wound/ulcer(s) Consult Discharge Plan - Plan Referrals: Leda Slaughter DO [Primary Care Provider] - 04/04/17 9:45 am (Please follow up with your primary care provider [phone]) Ravindra Jesus MD [Partnered Physician] - 05/05/17 1:50 pm
[2017-03-25] MEDS: Insulin NPH 100 UNIT/ML (x5UNIT) SQ SCH (08:53)
[2017-03-25] MEDS: Heparin 25,000 UNIT/500 ML D5W 25,000 UNIT/500 ML MLS IVC SCH (14:10)
[2017-03-25] MEDS ORDERED: Insulin NPH 100 UNIT/ML (x5UNIT) SQ SCH (17:00)
[2017-03-26 05:04] LABS: Basophils % 0.4 %; Eosinophils # 0.1 K/mcL (0.0-0.6); Eosinophils % 1.8 %; Hematocrit 40.5 % (37.5-50.1); Hemoglobin 13.8 g/dL (12.9-16.9); Immature Granulocytes % 0.4 % (0-4); Lymphocytes # 1.6 K/mcL (0.6-4.6); Lymphocytes % 28.6 %; Mean Corpuscular HGB Conc 34.1 g/dL (31.6-35.5); Mean Corpuscular Hemoglobin 31.2 pg (28.0-33.3); Mean Corpuscular Volume 91.4 fL (83.0-100.0); Mean Platelet Volume 10.8 fL (9.4-12.4); Monocytes # 0.6 K/mcL (0.0-1.3); Monocytes % 10.6 %; Neutrophils # 3.3 K/mcL (1.6-8.9); Platelet Count 140 K/mcL (140-400); Red Blood Count 4.43 M/mcL (4.19-5.50); Red Cell Distribution Width 12.5 % (11.5-14.5); Segmented Neutrophils % 58.2 %
[2017-03-26 05:19] LABS: BUN/Creatinine Ratio 18 (6-26); Blood Urea Nitrogen 17 mg/dL (8-26); Calcium 9.4 mg/dL (8.6-10.8); Carbon Dioxide 26 mEq/L (19-29); Chloride 105 mEq/L (98-109); Glucose 201 mg/dL (70-99); Osmolality,Calculated 293 (280-300); Potassium 4.1 mEq/L (3.5-4.5); Sodium 138 mEq/L (136-145); eGFR For African Americans > 60 (> 60); eGFR For Non-African Americans > 60 (> 60)
--- NOTE | 2017-03-26 06:44 | Vascular/Endovas Progress Note ---
Date of Encounter: 03/25/17 Time of Encounter: 13:20 - Assessment and plan (1) CVA (cerebral vascular accident) Current Visit: Yes Status: Acute The patient has a critical right internal carotid stenosis identified on MRA. He has had multiple recent right hemispheric infarcts. He is now on a heparin drip without recurrent symptoms. He has been scheduled for a right carotid endarterectomy tomorrow. The risks, benefits and alternatives were again discussed with him in detail and all questions were answered. He continues to express understanding and wishes to proceed. Continue with heparin drip. Qualifiers: CVA mechanism: unspecified Qualified Code(s): I63.9 - Cerebral infarction, unspecified (2) Carotid stenosis, right Current Visit: Yes Status: Chronic (3) Coronary artery disease Current Visit: No Status: Chronic Qualifiers: Coronary Disease-Associated Artery/Lesion type: bypass graft [place] vs. transplanted heart: [place] heart Associated angina: without angina Qualified Code(s): I25.810 - Atherosclerosis of coronary artery bypass graft(s) without angina pectoris (4) Diabetes mellitus Current Visit: No Status: Chronic He was again counseled regarding atherosclerotic risk factor reduction. 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 He reports no acute changes. He denies chest pain or shortness of breath. Vital Signs, Last 4 Hours Pulse Resp BP Pulse Ox 03/26/17 05:00 57 03/26/17 04:17 60 19 148/72 96 - Physical Examination General: Present: Conversant, No Apparent Distress HEENT: Present: Atraumatic, Pupils equal Cardiac: Present: Reg Rate and Rhythm, Normal S1 and S2 Lungs: Present: Normal Breath Sounds, No Wheeze, Rales, Rhonchi Neuro: Present: Alert and responsive, Motor nerves grossly intact, Sensory nerves grossly intact Vascular: Present: Normal capillary refill, Pulse, normal. Absent: Cyanosis, Edema Abdomen: Present: Soft, Non-tender Skin: Present: No rashes noted on visualized skin Results 03/26/17 04:48 03/26/17 04:48 Lab Results, Last 24 hours 03/25/17 03/25/17 03/25/17 06:36 06:36 06:36 WBC 7.0 Hgb 13.6 Hct 40.1 Plt Count 143 APTT 123.7 H* Sodium 138 Potassium 4.2 Chloride 103 Carbon Dioxide 26 BUN 17 Creatinine 0.96 Glucose 239 H Calcium 9.2 03/25/17 03/25/17 03/26/17 14:43 21:56 04:48 WBC 5.7 Hgb 13.8 Hct 40.5 Plt Count 140 APTT 56.4 H D 62.8 H Sodium Potassium Chloride Carbon Dioxide BUN Creatinine Glucose Calcium 03/26/17 03/26/17 04:48 04:48 WBC Hgb Hct Plt Count APTT 78.3 H Sodium 138 Potassium 4.1 Chloride 105 Carbon Dioxide 26 BUN 17 Creatinine 0.93 Glucose 201 H Calcium 9.4 Consult Discharge Plan - Plan Referrals: Leda Slaughter DO [Primary Care Provider] - 04/04/17 9:45 am (Please follow up with your primary care provider [phone]) Ravindra Jesus MD [Partnered Physician] - 05/05/17 1:50 pm
[2017-03-26] MEDS: Ringers Solution, Lactated 1,000 ML IVC SCH ×2 (07:15→10:36)
[2017-03-26] MEDS ORDERED: Bupivacaine-MPF 0.25% 10 ML VIAL ONE (07:24)
[2017-03-26] MEDS ORDERED: Heparin 1,000 UNITS/500 mL NS 500 ML ONE (07:25)
[2017-03-26] MEDS ORDERED: Lidocaine 1% 20 ML MDV ONE (07:25)
[2017-03-26] MEDS: Insulin LISPRO 300 UNITS/3 ML VIAL SQ SCH ×2 (07:30→16:52)
--- NOTE | 2017-03-26 07:30 | Anesthesia Evaluation PreOp ---
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: CVA (amarosis fugax) Other Medical History: Diabetes Type II Anesthesia History: No Prior Anesthetic Complications, Past Anesthesia Alcohol Use: none Drug use: none Medications and Allergies Clopidogrel [Plavix] 75 mg PO DAILY 03/17/17 [History] Insulin NPH Human Isophane [Novolin N] 20 unit SQ BIDWM 03/17/17 [History] Insulin Regular, Human [Novolin R] 20 unit SQ TIDAC 03/17/17 [History] Lisinopril-HCTZ 20-12.5 [Prinzide 20-12.5] 1 tab PO BID 03/17/17 [History] Metoprolol [Lopressor] 25 mg PO BID 03/17/17 [History] amLODIPine [Norvasc] 5 mg PO DAILY 03/17/17 [History] Aspirin 81 mg PO DAILY #30 tab.chew 03/19/17 [Rx] Atorvastatin [Lipitor] 40 mg PO HS #30 tablet 03/19/17 [Rx] 3 Allergy/AdvReac Type Severity Reaction Status Date / Time Iodinated Contrast- Oral and Allergy Hives Verified 03/24/17 09:03 IV Dye [Iodinated Contrast Media - Oral and] - Meds/Allergy Pre-op Review Medications Reviewed: Yes Allergies Reviewed: Yes Beta Blockers on Current Med List: Yes If Beta Blockers taken, Date/Time (Last Dose taken): 03/24 held due to HR Anesthesia Results - Labs 03/26/17 04:48 03/26/17 04:48 - Imaging EKG: report reviewed (SINUS BRADYCARDIA WITH FIRST DEGREE AV BLOCK BASELINE ARTIFACT) Anesthesia Exam Selected Entries 03/26/17 00:24 03/26/17 04:17 Temperature 97.9 F Pulse Rate 60 Respiratory Rate 19 Blood Pressure 148/72 O2 Sat by Pulse Oximetry 96 Oxygen Delivery Method Room Air Weight: 104kg NPO (# of Hours): 8 Pain Scale: 0 Pain Scale Used: Numeric (1 - 10) - HEENT Pupil (Motor): EOMI Mallampati: II Teeth: Edentulous Oral Opening: Greater than 3 - INDUSTRIAL ENERGY ENGINEER LOC: Oriented INDUSTRIAL ENERGY ENGINEER Motor: Normal RUE, Normal LUE, Normal RLE, Normal LLE, Normal Face INDUSTRIAL ENERGY ENGINEER Sensory: Normal: RUE, LUE, RLE, LLE, Face - Cardiac Rhythm: Regular Murmur: None - Pulmonary Breath Sounds: bilateral Clear Respiratory Effort: Symmetrical Anesthesia Assess/Plan ASA Score: 3 Modified [place] Scale for Level of Consciousness: Cooperative, oriented, and tranquil Anesthetic Plan: General Monitoring Plan: Standard Monitors, A-Line Recovery Plan: PACU (Discussed risks of GA, questions answered and agrees to proceed.)
[2017-03-26] MEDS ORDERED: Vancomycin 1,000 MG VIAL ONE (07:57)
[2017-03-26] MEDS ORDERED: Insulin NPH 300 UNIT/3 ML per UNIT SQ ONE (08:00)
[2017-03-26] MEDS ORDERED: ceFAZolin 2,000 MG in D5% in Water (Mini-Bag+) 100 ML IVPB ONE (08:05)
[2017-03-26] MEDS ORDERED: Vancomycin 1,000 MG in D5% in Water 250 ML IVPB ONE (08:25)
--- NOTE | 2017-03-26 09:00 | Anesthesia Procedures ---
Date of Encounter: 03/26/17 Time of Encounter: 07:20 Procedures: Anesthesia - Arterial Line Consent obtained: verbal consent Time out performed: Yes Local Anesthetic: Lidocaine 1% Amount of Anesthetic used (mls): 3 Size (Gauge): 20 Length (inches): 1 3/4 Technique Used: sterile prep, guide wire technique Post-Procedure: line taped into place, dry sterile dressing placed Patient tolerated procedure: well Complications: none Site: Radial L Vitals: 3 Vital Signs Time 0725 BP Pulse 68 Resp O2 Sat 96 Comments: IV placed right forearm, 18 ga per Sumi Hodgson, Left A-line placed per Sumi Hoang
[2017-03-26] MEDS ORDERED: *HR* Labetalol 20 MG/4 ML SYRINGE IVP PRN ×3 (09:03→19:12)
[2017-03-26] MEDS ORDERED: Ondansetron 4 MG/2 ML VIAL IVP ONE (09:03)
[2017-03-26] MEDS ORDERED: *HR* HYDROmorphone (PF) 1 MG/ML SYRINGE IVP PRN (09:03)
[2017-03-26] MEDS ORDERED: *HR* Promethazine 25 MG/ML VIAL IVP PRN (09:03)
[2017-03-26] MEDS ORDERED: *HR* Labetalol 100 MG/20 ML MDV ONE (09:58)
--- NOTE | 2017-03-26 11:33 | Operative Note ---
Date of procedure: 03/26/17 Pre-op diagnosis: Symptomatic 80-99% right internal carotid artery stenosis Post-op diagnosis: same Procedure: Right carotid endarterectomy with hemashield patch angioplasty Complications: None Anesthesia: BARONA Surgeon: Ravindra Jesus Estimated blood loss (cc): 100 Specimen: Right carotid plaque Condition: stable Disposition: PACU Procedure in Detail: Indications: The patient is a 77 year old male who has recently sustained multiple right hemispehric infarcts. He was found by MRA to have critical right internal carotid artery stenosis. He was admitted and started on a heparin drip. Carotid endarterectomy was recommended to reduce his risk of recurrent stroke. Procedure: The patient was identified in the preoperative area. The risks, benefits, and alternatives of the procedure were discussed and all questions were answered. The patient was then taken to the operating room and placed in supine position on the operating table. After the induction of general endotracheal anesthesia, the patient was cleaned and draped in normal sterile fashion. A longitudinal incision was made anterior to the right sternocleidomastoid muscle. Hemostasis was obtained via electrocautery. Through a process of blunt , sharp, and electrocautery dissection, the platysma was traversed and the jugular vein was identified. The facial vein was dissected, clamped, divided and ligated with a 2-0 silk suture ligature. The jugular vein was retracted to expose the carotid bifurcation. The patient received 2000 units of heparin intravenously at this time. Proximal dissection of the common and external carotid arteries were performed circumferentially. Dissection of the internal carotid was performed circumferentially. The dissection was carried distally due the location of his stenosis as noted on MRA. Vessels loops were passed around the internal and external carotid and an umbilical tape was passed from the common carotid artery. The patient received additional 3000 units of heparin intravenously. Additional heparin was given throughout the case to maintain adequate anticoagulation. After waiting adequate time for the heparin to circulate, the vessels were occluded and a longitudinal arteriotomy was made into the common carotid artery extending into the internal carotid beyond the plaque. The plaque was long, extended distally and was heavily calcified. Vigorous pulsatile retrograde flow was noted from the internal carotid artery upon release of the vessel loop. Due to the rapid pulsatile retrograde flow, no shunt was placed. A dental [place] was then used to perform a standard endarterectomy. Proximal and distal endpoints were inspected. No elevated flaps were noted. Additional heparin was given throughout the procedure to maintain adequate anticoagulation. A Hemashield patch was cut to fit the defect and sutured in place with running 6 -0 Prolene. Prior to completing the closure, each vessel was flushed and then reoccluded. Heparinized saline was infused into the lumen. The patch was completed. Flow was restored in the external carotid artery, followed the common carotid artery, lastly the internal carotid artery was opened. A low resistance arterialized signal was present within the internal carotid artery beyond the patch. Thrombin and Gelfoam were used to aid in hemostasis. Meticulous hemostasis was obtained throughout the wound with electrocautery. Platelet rich and platelet poor plasma were infused into the wounds. The sternocleidomastoid was reapproximated with interrupted 3-0 Vicryl. Platelet rich and platelet poor plasma were infused into the wound. A TLS drain was brought through a separate stab incision and sutured in place with 0 silk suture. The platysma was reapproximated with running 3-0 Vicryl. Local anesthetic was infused in the skin. A 3-0 Monocryl was used to reapproximate the skin. A sterile dressing was applied. The patient was extubated, taken to the recovery room in stable condition.
[2017-03-26] MEDS ORDERED: Protamine Sulfate 50 MG/5 ML VIAL IVP ONE ×3 (12:11→12:44)
--- NOTE | 2017-03-26 12:28 | Anesthesia Evaluation Post Op ---
Date of Encounter: 03/26/17 Time of Encounter: 12:27 - Vital Signs Vital Signs: Vital Signs/O2 Sat/Glucose, Most Recent Temp Pulse Resp BP Pulse Ox 100.3 F H 77 14 151/73 95 03/26/17 12:07 03/26/17 12:17 03/26/17 12:17 03/26/17 12:17 03/26/17 12:17 Blood Glucose* 227 - Lungs Lungs: Clear Ascult./Percussion - Airway Airway: Non-obstructed - Cardiovascular Regular Rate - Mental Status Mental Status: Alert & Oriented, Answers Appropriately - Pain Pain Scale: 0 Pain Scale used: Numeric (1 - 10) - Nausea Vomiting Nausea Vomiting: Not Present - Hydration Hydration: NPO - Discharge PostOp Status: Transfer Patient to floor
[2017-03-26] MEDS ORDERED: *HR* OxyCODONE/APAP 5/325 TABLET PO ONE (12:48)
[2017-03-26] MEDS ORDERED: Acetaminophen 325 MG TABLET PO PRN (13:07)
[2017-03-26] MEDS ORDERED: *HR* HYDROcodone/Acet 5/325 mg TABLET PO PRN (13:07)
[2017-03-26] MEDS ORDERED: *HR* Dextrose 50 % in Water (Syg) 50 ML SYRINGE IVP PRN (13:07)
[2017-03-26] MEDS ORDERED: Dextrose Gel 15 GM PO PRN ×2 (13:07)
[2017-03-26] MEDS ORDERED: Naloxone 0.4 MG/ML INJ IVP PRN ×2 (13:07)
[2017-03-26] MEDS ORDERED: Ondansetron 4 MG/2 ML VIAL IVP PRN (13:07)
[2017-03-26] MEDS ORDERED: D5% in Water 1,000 ML IVC PRN (13:07)
[2017-03-26] MEDS ORDERED: *HR* OxyCODONE Immed Rel 5 MG TABLET PO PRN (13:07)
[2017-03-26] MEDS: *HR* Morphine 2 MG/ML SYRINGE IVP PRN ×6 (13:24→23:58)
--- NOTE | 2017-03-26 14:06 | Internal Med Progress Note ---
<TiburcioDemetrius edwards - Last Filed: 03/26/17 17:12> Date of Encounter: 03/26/17 Time of Encounter: 14:04 - Assessment and plan (1) TIA (transient ischemic attack) Current Visit: No Status: Acute Assessment and plan: MRI brain showed single new 3mm acute infarct within the subcortical white matter of the right temporal lobe, multiple stable subacute infarcts within the subcortical and deep white matter of the right frontal and pariental lobes, no acute hemorrhage. Patient's deficits have resolved since admission. neurological exam does not show any deficits. of note, patient was just admitted to hospital last week for lacunar infarction. at that time, carotid duplex was ordered, bilateral proximal ICA non stenotic plaques found. At that time, carotid endarterectomy was scheduled outpatient and he was started on ASA and plavix. Plan: s/p right carotid endarterectomy today. patient doing well. continue to hold oral BP meds and give IV HTN meds per vascular surgery. possible D/C tomorrow if patient doing well. clear liquid diet, advance as tolerated. 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 This can be re started as outpatient after follow up with his log deck tender. Qualifiers: Transient cerebral ischemia type: amaurosis fugax Qualified Code(s): G45.3 - Amaurosis fugax (2) Hypertension Current Visit: No Status: Chronic Assessment and plan: plan as above Qualifiers: Hypertension type: essential hypertension Qualified Code(s): I10 - Essential (primary) hypertension (3) Diabetes mellitus Current Visit: No Status: Chronic Assessment and plan: resume home insulin and monitor. ADA diet. 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 transplanted heart: [place] heart Associated angina: without angina Qualified Code(s): I25.810 - Atherosclerosis of coronary artery bypass graft(s) without angina pectoris (6) CVA (cerebral vascular accident) Current Visit: Yes Status: Acute Assessment and plan: plan as #1 above Qualifiers: CVA mechanism: embolism Precerebral and cerebral artery: carotid artery Laterality of affected vessel: unspecified Qualified Code(s): I63.139 - Cerebral infarction due to embolism of unspecified carotid artery (7) DVT prophylaxis Current Visit: No Status: Acute Assessment and plan: EPCD - Subjective Interval history: 77M evaluated at bedside. patient is currently post op and is still a little sedated. he appears in mild discomfort and reports some pain. denies nausea, or vomiting. - Constitutional Vitals: Temp Pulse Resp BP Pulse Ox 97.9 F 81 16 156/71 95 03/26/17 13:15 03/26/17 13:15 03/26/17 13:15 03/26/17 13:15 03/26/17 13:15 General appearance: Present: cooperative, mild distress, A&O X 3, pleasant, no acute distress, obese, answers questions appropriately - Head Head exam: Present: atraumatic, normocephalic - Neck Additional comments: neck swollen. he is status post right carotid endarterectomy. he has ice packs around his neck. - Respiratory Respiratory exam: Present: CTAB - Cardiovascular Cardiovascular exam: Present: RRR, +S1, +S2 - GI/Abdominal GI/Abdominal exam: Present: normal bowel sounds, soft. Absent: distended, tenderness - Extremities Exam Extremities exam: Absent: cyanotic, pedal edema - Neurological Exam Neurological exam: Present: alert, oriented X3, no focal deficits - Psychiatric Psychiatric exam: Present: normal affect, normal mood - Skin Skin exam: Present: intact Internal Medicine: Result - Labs CBC & Chem 7: 03/26/17 04:48 03/26/17 04:48 Labs: Short CBC 03/26/17 Range/Units 04:48 WBC 5.7 (4.3-11.1) K/mcL Hgb 13.8 (12.9-16.9) g/dL Hct 40.5 (37.5-50.1) % Plt Count 140 (140-400) K/mcL Neutrophils # 3.3 (1.6-8.9) K/mcL BMP 03/26/17 04:48 Sodium 138 Potassium 4.1 Chloride 105 Carbon Dioxide 26 BUN 17 Creatinine 0.93 Glucose 201 H Calcium 9.4 - ABG Interpretation ABG results: PT/INR, D-dimer PT 11.9 Seconds (9.4-12.1) 03/24/17 12:46 Consult Discharge Plan - Plan Referrals: Leda Slaughter DO [Primary Care Provider] - 04/04/17 9:45 am (Please follow up with your primary care provider [phone]) Ravindra Jesus MD [Partnered Physician] - 05/05/17 1:50 pm <Ron Galeas - Last Filed: 03/26/17 18:20> Date of Encounter: 03/26/17 - Constitutional Vitals: Temp Pulse Resp BP Pulse Ox 97.9 F 92 16 145/79 98 03/26/17 13:15 03/26/17 17:00 03/26/17 13:15 03/26/17 17:00 03/26/17 13:45 Internal Medicine: Result - Labs CBC & Chem 7: 03/26/17 04:48 03/26/17 04:48 Labs: Short CBC 03/26/17 Range/Units 04:48 WBC 5.7 (4.3-11.1) K/mcL Hgb 13.8 (12.9-16.9) g/dL Hct 40.5 (37.5-50.1) % Plt Count 140 (140-400) K/mcL Neutrophils # 3.3 (1.6-8.9) K/mcL [facility] 03/26/17 04:48 Sodium 138 Potassium 4.1 Chloride 105 Carbon Dioxide 26 BUN 17 Creatinine 0.93 Glucose 201 H Calcium 9.4 - ABG Interpretation ABG results: PT/INR, D-dimer PT 11.9 Seconds (9.4-12.1) 03/24/17 12:46 - Attending Attestation I examined this patient and my medical decision-making was reviewed with the Resident Physician, Dr. Urbina. I agree with the documented findings, disposition and treatment plan as described except to the extent set forth below. I have independently obtained history and examined the patient and my findings are summarized below: Patient is postop status post right carotid endarterectomy. Heart exam reveals regular rate and rhythm S1-S2. Lungs are clear. Plan: Continue postop care. Resume antihypertensive medications in the morning.
[2017-03-26] MEDS: *HR* Metoprolol 5 MG/5 ML VIAL IVP SCH ×3 (14:27→23:48)
[2017-03-26] MEDS: ceFAZolin 2,000 MG in D5% in Water 100 ML IVPB SCH ×2 (16:55→23:48)
[2017-03-26] MEDS: Insulin NPH 100 UNIT/ML (x5UNIT) SQ SCH (16:55)
--- NOTE | 2017-03-26 19:19 | Event Note ---
Date of Encounter: 03/26/17 Time of Encounter: 18:30 The patient has been seen and examined multiple times today during the postoperative period to evaluate his postoperative right neck swelling. His swelling appears superficial to the the muscle fascia. He received protamine in the PACU and the swelling has not changed since arriving on the floor. He has no tracheal deviation and no stridor. His TLS drain continues to function. He denies signficant neck pain. He has expected ecchymosis at his right neck , especially given his preop heparin and recent plavix. He does have some postoperative intolerance to thin liquids at this time. He will be placed NPO overnight. He will receive intravenous fluids. His blood pressure will be managed with intravenous antihypertensives. Heparin, ASA and Plavix will be held at this time due to bleeding risk. The plan of care was discussed with the patient, his family and his nurse.
[2017-03-26] MEDS ORDERED: Vancomycin 1,500 MG in D5% in Water 250 ML IVPB ONE (20:00)
[2017-03-26] MEDS: 0.9 % Sodium Chloride 1,000 ML IVC SCH (20:06)
[2017-03-26] MEDS ORDERED: Lisinopril-HCTZ 20-12.5mg TABLET PO SCH (21:00)
[2017-03-27] MEDS: *HR* Morphine 2 MG/ML SYRINGE IVP PRN ×2 (03:24→13:30)
[2017-03-27 05:08] LABS: Basophils % 0.2 %; Hematocrit 34.5 % (37.5-50.1); Immature Granulocytes % 0.8 % (0-4); Lymphocytes # 0.9 K/mcL (0.6-4.6); Lymphocytes % 7.8 %; Mean Corpuscular HGB Conc 33.6 g/dL (31.6-35.5); Mean Corpuscular Hemoglobin 31.7 pg (28.0-33.3); Mean Corpuscular Volume 94.3 fL (83.0-100.0); Mean Platelet Volume 11.3 fL (9.4-12.4); Monocytes # 1.1 K/mcL (0.0-1.3); Monocytes % 9.5 %; Neutrophils # 9.5 K/mcL (1.6-8.9); Platelet Count 133 K/mcL (140-400); Red Blood Count 3.66 M/mcL (4.19-5.50); Red Cell Distribution Width 12.8 % (11.5-14.5); Segmented Neutrophils % 81.7 %
[2017-03-27 05:21] LABS: BUN/Creatinine Ratio 21 (6-26); Blood Urea Nitrogen 22 mg/dL (8-26); Calcium 8.6 mg/dL (8.6-10.8); Carbon Dioxide 25 mEq/L (19-29); Chloride 103 mEq/L (98-109); Glucose 290 mg/dL (70-99); Osmolality,Calculated 298 (280-300); Potassium 4.7 mEq/L (3.5-4.5); Sodium 137 mEq/L (136-145); eGFR For African Americans > 60 (> 60); eGFR For Non-African Americans > 60 (> 60)
[2017-03-27 05:31] LABS: Hemoglobin 11.6 g/dL (12.9-16.9)
[2017-03-27] MEDS: *HR* Metoprolol 5 MG/5 ML VIAL IVP SCH ×4 (05:54→23:57)
--- NOTE | 2017-03-27 07:46 | Vascular/Endovas Progress Note ---
Date of Encounter: 03/27/17 Time of Encounter: 07:25 - Assessment and plan (1) Carotid stenosis, right Current Visit: Yes Status: Chronic The patient is postoperative day #1 after right carotid endarterectomy. He is alert without focal deficits. The patient has decreased right neck swelling today. He has no tracheal deviation and no stridor. He has no pulsatile mass or fluctuance. His incision appears to be healing well. His drain was removed. He reports diffictulty swallowing thin liquids. Will consult speech therapy this morning. The patient will remain NPO with IV fluid hydration until after the consult. Hold ASA and Clopidogrel today. (2) CVA (cerebral vascular accident) Current Visit: Yes Status: Acute Qualifiers: CVA mechanism: unspecified Qualified Code(s): I63.9 - Cerebral infarction, unspecified (3) Coronary artery disease Current Visit: No Status: Chronic Qualifiers: Coronary Disease-Associated Artery/Lesion type: bypass graft [place] vs. transplanted heart: [place] heart Associated angina: without angina Qualified Code(s): I25.810 - Atherosclerosis of coronary artery bypass graft(s) without angina pectoris (4) Diabetes mellitus Current Visit: No Status: Chronic He was again counseled regarding atherosclerotic risk factor reduction. Qualifiers: Diabetes mellitus type: type 2 Diabetes mellitus complication status: with circulatory complication Diabetes mellitus complication detail: with other circulatory complications Diabetes mellitus usp insulin use: with vermin exterminator use Qualified Code(s): E11.59 - Type 2 diabetes mellitus with other circulatory complications; Z79.4 - FPC (current) use of insulin (5) Hyperlipidemia Current Visit: No Status: Chronic Qualifiers: Hyperlipidemia type: mixed hyperlipidemia Qualified Code(s): E78.2 - Mixed hyperlipidemia (6) Hypertension Current Visit: No Status: Chronic Qualifiers: Hypertension type: essential hypertension Qualified Code(s): I10 - Essential (primary) hypertension (7) Postoperative anemia due to acute blood loss Current Visit: Yes Status: Acute The patient has acute expected postoperative blood loss anemia. He is hemodynamically stable without evidence of ongoing blood loss. - Subjective Interval history: The patient reports that he is feeling better today. He reports difficulty with swallowing thin liquids. He denies any focal neurologic deficits. He denies chest pain or shortness of breath. Vital Signs, Last 4 Hours Temp Pulse Resp BP Pulse Ox 03/27/17 07:27 97.8 F 58 16 115/60 97 03/27/17 04:47 57 16 139/67 98 03/27/17 03:47 52 - Physical Examination General: Present: Conversant, No Apparent Distress HEENT: Present: Trachea midline, Pupils equal, Other (decreased swelling in the right neck, expected ecchymosis noted on the right neck, non pulsatile mass, incision clean, dry and intact without erythema or drainage) Neck: Absent: JVD, Tracheal deviation Cardiac: Present: Reg Rate and Rhythm Lungs: Present: Normal Breath Sounds Neuro: Present: Alert and responsive, No focal deficits noted, Motor nerves grossly intact, Sensory nerves grossly intact Vascular: Present: Normal capillary refill. Absent: Cyanosis, Edema Abdomen: Present: Soft Skin: Present: No rashes noted on visualized skin - VTE Documentation of Mechanical Device: Intermittent pneumatic compression device Results 03/27/17 04:07 03/27/17 04:07 Lab Results, Last 24 hours 03/27/17 03/27/17 04:07 04:07 WBC 11.6 H D Hgb 11.6 L D Hct 34.5 L Plt Count 133 L Sodium 137 Potassium 4.7 H Chloride 103 Carbon Dioxide 25 BUN 22 Creatinine 1.06 Glucose 290 H Calcium 8.6 Consult Discharge Plan - Plan Referrals: Leda Slaughter DO [Primary Care Provider] - 04/04/17 9:45 am (Please follow up with your primary care provider [phone]) Ravindra Jesus MD [Partnered Physician] - 05/05/17 1:50 pm
[2017-03-27] MEDS ORDERED: Insulin NPH 300 UNIT/3 ML per UNIT SQ SCH (08:00)
[2017-03-27] MEDS: 0.9 % Sodium Chloride 1,000 ML IVC SCH ×2 (08:32→23:57)
[2017-03-27] MEDS ORDERED: amLODIPine 5 MG TABLET PO SCH (09:00)
[2017-03-27] MEDS ORDERED: Aspirin 81 MG TAB.CHEW PO SCH (09:00)
--- NOTE | 2017-03-27 09:40 | Discharge Summary ---
<Demetrius Urbina - Last Filed: 03/27/17 14:11> Date of Encounter: 03/28/17 Time of Encounter: 09:31 - Discharge Diagnosis (1) TIA (transient ischemic attack) Priority: Primary Status: Acute Qualifiers: Transient cerebral ischemia type: amaurosis fugax Qualified Code(s): G45.3 - Amaurosis fugax (2) Hypertension Priority: Secondary Status: Chronic Qualifiers: Hypertension type: essential hypertension Qualified Code(s): I10 - Essential (primary) hypertension (3) Diabetes mellitus Priority: Secondary Status: Chronic Qualifiers: Diabetes mellitus type: type 2 Diabetes mellitus complication status: with circulatory complication Diabetes mellitus complication detail: with other circulatory complications Diabetes mellitus intermediate school teacher insulin use: with custodial use Qualified Code(s): E11.59 - Type 2 diabetes mellitus with other circulatory complications; Z79.4 - USP (current) use of insulin (4) Hyperlipidemia Priority: Secondary Status: Chronic Qualifiers: Hyperlipidemia type: mixed hyperlipidemia Qualified Code(s): E78.2 - Mixed hyperlipidemia (5) Coronary artery disease Priority: Secondary Status: Chronic Qualifiers: Coronary Disease-Associated Artery/Lesion type: bypass graft [place] vs. transplanted heart: [place] heart Associated angina: without angina Qualified Code(s): I25.810 - Atherosclerosis of coronary artery bypass graft(s) without angina pectoris (6) CVA (cerebral vascular accident) Priority: Secondary Status: Acute Qualifiers: CVA mechanism: embolism Precerebral and cerebral artery: carotid artery Laterality of affected vessel: unspecified Qualified Code(s): I63.139 - Cerebral infarction due to embolism of unspecified carotid artery (7) DVT prophylaxis Priority: Secondary Status: Acute - Discharge Medications Home Medications: Insulin NPH Human Isophane [Novolin N] 20 unit SQ BIDWM 03/17/17 [History] Insulin Regular, Human [Novolin R] 20 unit SQ TIDAC 03/17/17 [History] Lisinopril-HCTZ 20-12.5 [Prinzide 20-12.5] 1 tab PO BID 03/17/17 [History] Metoprolol [Lopressor] 25 mg PO BID 03/17/17 [History] amLODIPine [Norvasc] 5 mg PO DAILY 03/17/17 [History] Atorvastatin [Lipitor] 40 mg PO HS #30 tablet 03/19/17 [Rx] Acetaminophen [Tylenol] 650 mg PO Q6HR PRN tablet 03/27/17 [Rx] Allergies/Adverse Reactions: 3 Allergy/AdvReac Type Severity Reaction Status Date / Time Iodinated Contrast- Oral and Allergy Hives Verified 03/24/17 09:03 IV Dye [Iodinated Contrast Media - Oral and] Date of admission: 03/24/17 19:48 Primary care physician: Jasper Chauhan Consults: 03/27/17 07:42 Consult to Speech Therapy [CONS] Routine Comment: Evaluate, develop and implement POC Reason for Consult: Difficulty swallowing thin liquids after carotid endarterectomy. Call Completed: No - Patient Status Disposition: Home, Self-Care Condition: Good Functional capacity at discharge: independent ambulation Overall status at discharge: patient is progressing back to baseline - Discharge Instructions Instructions: Carotid Endarterectomy (DC), Peripheral Vascular Disorders (DC), Surgical Site Infections (GEN), Chronic Hypertension (DC) Follow Up With: Leda Slaughter DO [Primary Care Provider] - 04/04/17 9:45 am (Please follow up with your primary care provider [phone]) Ravindra Jesus MD [Partnered Physician] - 04/08/17 1:20 pm Additional Instructions: continue incentive spirometry. Follow up with primary care doctor within one week of discharge. Follow up with your cryptologic supervisor. follow up with vascular surgeon- Dr. Jesus Please stop taking aspirin and plavix until you follow up with your cryptologic supervisor and vascular surgeon. return to emergency department if you develop stroke like symptoms, severe neck swelling, or difficulty in breathing. - Diet and Activity Activity: increase activity as tolerated Diet: diabetic diet, low fat, low cholesterol Hospital course: Mr. Newell is a 77 year old male with PMHx of CVA with no residual weakness, DM , CAD, HTN, HLD. Kasiaetn presented to the ED on 03/24/17 with chief complaint of new onset left facial numbness and right eye vision loss. Of note, patient was recently discharged from on 03/19/17 after being evaluated for TIA. He was seen by vascular surgery at that time and was scheduled for right carotid endarterectomy on 03/26/17. Upon discharge at that time, patient was told to return to the hospital if he suffered any further neurological deficits. After admission during this hospital stay, patient's initial symptoms quickly resolved. He was seen again by vascular surgeon and patient had his scheduled right carotid endarterectomy on 03/26/17. Patient was placed on a heparin gtt without bolus per vascular surgery. Patient tolerated the procedure well. He had some post op neck swelling that was monitored closely. patient had post op intolerance to thin liquids, and speech therapy was consulted, and they recommended a barium swallow. Patient continues to remain stable after surgery, and will be conditionally discharged later today if ok per vascular surgery and if his barium swallow is negative. Plan: continue incentive spirometry. Follow up with primary care doctor within one week of discharge. Follow up with your cryptologic supervisor. follow up with vascular surgeon- Dr. Jesus Please stop taking aspirin and plavix until you follow up with your cryptologic supervisor and vascular surgeon. return to emergency department if you develop stroke like symptoms, severe neck swelling, or difficulty in breathing. - Time Spent with Patient Total time spent providing and/or coordinating discharge services: - Constitutional Vitals: Temp Pulse Resp BP Pulse Ox 97.8 F 58 16 115/60 97 03/27/17 07:27 03/27/17 07:27 03/27/17 07:27 03/27/17 07:27 03/27/17 07:27 General appearance: Present: cooperative, mild distress, A&O X 3, pleasant, no acute distress, answers questions appropriately - Head Head exam: Present: atraumatic, normocephalic - Neck Additional comments: significant bruising with suture lines present on right side of neck from surgery. - Respiratory Respiratory exam: Present: CTAB - Cardiovascular Cardiovascular exam: Present: RRR, +S1, +S2 - GI/Abdominal GI/Abdominal exam: Present: distended, firm, normal bowel sounds. Absent: tenderness - Extremities Exam Extremities exam: Absent: cyanotic, pedal edema - Neurological Exam Neurological exam: Present: alert, oriented X3, no focal deficits - Psychiatric Psychiatric exam: Present: normal affect, normal mood - Skin Additional comments: erythema with bruising present on right side of neck and chest area. - VTE Documentation of Mechanical Device: Intermittent pneumatic compression device <Ernst Feliz - Last Filed: 03/30/17 13:25> Date of Encounter: 03/30/17 Date of admission: 03/24/17 19:48 Primary care physician: Jasper Chauhan Consults: 03/27/17 07:42 Consult to Speech Therapy [CONS] Routine Comment: Evaluate, develop and implement POC Reason for Consult: Difficulty swallowing thin liquids after carotid endarterectomy. Call Completed: No Hospital course: Mr. Newell is a 77 year old male - Time Spent with Patient Total time spent providing and/or coordinating discharge services: - Constitutional Vitals: Temp Pulse Resp BP Pulse Ox 97.8 F 58 16 144/65 96 03/28/17 11:24 03/28/17 11:46 03/28/17 11:24 03/28/17 11:24 03/28/17 11:24 - Attending Attestation Disregard this summary as I was not involved in this patient's care. Please read Dr Galeas's progress note
[2017-03-27] MEDS: Insulin LISPRO 300 UNITS/3 ML VIAL SQ SCH ×4 (10:13→16:56)
[2017-03-27] MEDS ORDERED: Insulin DETEMIR 100 UNIT/ML X5UNITS SQ ONE (11:52)
[2017-03-27] MEDS: Insulin NPH 100 UNIT/ML (x5UNIT) SQ SCH ×2 (13:26→16:54)
--- NOTE | 2017-03-27 14:05 | Internal Med Progress Note ---
<TiburciousDemetrius - Last Filed: 03/27/17 14:08> Date of Encounter: 03/27/17 Time of Encounter: 14:03 - Assessment and plan (1) TIA (transient ischemic attack) Current Visit: No Status: Acute Assessment and plan: MRI brain showed single new 3mm acute infarct within the subcortical white matter of the right temporal lobe, multiple stable subacute infarcts within the subcortical and deep white matter of the right frontal and pariental lobes, no acute hemorrhage. Patient's deficits have resolved since admission. neurological exam does not show any deficits. of note, patient was just admitted to hospital last week for lacunar infarction. at that time, carotid duplex was ordered, bilateral proximal ICA non stenotic plaques found. At that time, carotid endarterectomy was scheduled outpatient and he was started on ASA and plavix. Plan: s/p right carotid endarterectomy. patient doing well. continue to hold oral BP meds and give IV HTN meds per vascular surgery. patient had trouble swallowing liquids after surgery. consult to speech therapy made. s/p brarium swallow showing mild to moderate orophyaryngeal dysphagia. on nectar thick liquids and soft diet. holding plavix and ASA until follow up with electronic prepress technician possible D/C tomorrow. Qualifiers: Transient cerebral ischemia type: amaurosis fugax Qualified Code(s): G45.3 - Amaurosis fugax (2) Hypertension Current Visit: No Status: Chronic Assessment and plan: plan as above Qualifiers: Hypertension type: essential hypertension Qualified Code(s): I10 - Essential (primary) hypertension (3) Diabetes mellitus Current Visit: No Status: Chronic Assessment and plan: resume home insulin and monitor. ADA diet. Qualifiers: Diabetes mellitus type: type 2 Diabetes mellitus complication status: with circulatory complication Diabetes mellitus complication detail: with other circulatory complications Diabetes mellitus prison insulin use: with rat exterminator use Qualified Code(s): E11.59 - Type 2 diabetes mellitus with other circulatory complications; Z79.4 - intermodal dispatcher (current) use of insulin (4) Hyperlipidemia Current Visit: No Status: Chronic Assessment and plan: continue statin Qualifiers: Hyperlipidemia type: mixed hyperlipidemia Qualified Code(s): E78.2 - Mixed hyperlipidemia (5) Coronary artery disease Current Visit: No Status: Chronic Assessment and plan: continue statin Qualifiers: Coronary Disease-Associated Artery/Lesion type: bypass graft [place] vs. transplanted heart: [place] heart Associated angina: without angina Qualified Code(s): I25.810 - Atherosclerosis of coronary artery bypass graft(s) without angina pectoris (6) CVA (cerebral vascular accident) Current Visit: Yes Status: Acute Assessment and plan: plan as #1 above Qualifiers: CVA mechanism: embolism Precerebral and cerebral artery: carotid artery Laterality of affected vessel: unspecified Qualified Code(s): I63.139 - Cerebral infarction due to embolism of unspecified carotid artery (7) DVT prophylaxis Current Visit: No Status: Acute Assessment and plan: EPCD - Subjective Interval history: 77M evaluated at bedside. patient is currently post op and is still a little sedated. he appears in mild discomfort and reports some pain. denies nausea, or vomiting, diarrhea, fever, chills, chest pain, shortness of breath. - Constitutional Vitals: Temp Pulse Resp BP Pulse Ox 98.0 F 73 16 152/70 96 03/27/17 11:40 03/27/17 11:40 03/27/17 11:40 03/27/17 11:40 03/27/17 11:40 General appearance: Present: cooperative, A&O X 3, pleasant, no acute distress - Head Head exam: Present: atraumatic, normocephalic Additional comments: slight tongue deviation to the right. - Neck Additional comments: right sided neck swelling with ecchymosis. - Respiratory Respiratory exam: Present: CTAB - Cardiovascular Cardiovascular exam: Present: RRR, +S1, +S2 - GI/Abdominal GI/Abdominal exam: Present: normal bowel sounds, soft. Absent: distended, tenderness - Extremities Exam Extremities exam: Absent: cyanotic, pedal edema - Neurological Exam Neurological exam: Present: alert, oriented X3 Additional comments: slight tongue deviation to the right. - Psychiatric Psychiatric exam: Present: normal affect, normal mood - Skin Additional comments: redness, swelling, and bruising on the right side of neck. Internal Medicine: Result - Labs CBC & Chem 7: 03/27/17 04:07 03/27/17 04:07 Labs: Short CBC 03/27/17 Range/Units 04:07 WBC 11.6 H D (4.3-11.1) K/mcL Hgb 11.6 L D (12.9-16.9) g/dL Hct 34.5 L (37.5-50.1) % Plt Count 133 L (140-400) K/mcL Neutrophils # 9.5 H (1.6-8.9) K/mcL BMP 03/27/17 04:07 Sodium 137 Potassium 4.7 H Chloride 103 Carbon Dioxide 25 BUN 22 Creatinine 1.06 Glucose 290 H Calcium 8.6 - ABG Interpretation ABG results: PT/INR, D-dimer PT 11.9 Seconds (9.4-12.1) 03/24/17 12:46 - VTE Documentation of Mechanical Device: Intermittent pneumatic compression device Consult Discharge Plan - Plan Additional Instructions: continue incentive spirometry. Follow up with primary care doctor within one week of discharge. Follow up with your electronic prepress technician. follow up with vascular surgeon- Dr. Jesus Please stop taking aspirin and plavix until you follow up with your electronic prepress technician and vascular surgeon. return to emergency department if you develop stroke like symptoms, severe neck swelling, or difficulty in breathing. Referrals: Leda Slaughter, [Primary Care Provider] - 04/04/17 9:45 am (Please follow up with your primary care provider [phone]) Ravindra Jesus MD [Partnered Physician] - 05/05/17 1:50 pm <Ron Galeas - Last Filed: 03/27/17 14:54> Date of Encounter: 03/27/17 - Constitutional Vitals: Temp Pulse Resp BP Pulse Ox 98.0 F 73 16 152/70 96 03/27/17 11:40 03/27/17 11:40 03/27/17 11:40 03/27/17 11:40 03/27/17 11:40 Internal Medicine: Result - Labs CBC & Chem 7: 03/27/17 04:07 03/27/17 04:07 Labs: Short CBC 03/27/17 Range/Units 04:07 WBC 11.6 H D (4.3-11.1) K/mcL Hgb 11.6 L D (12.9-16.9) g/dL Hct 34.5 L (37.5-50.1) % Plt Count 133 L (140-400) K/mcL Neutrophils # 9.5 H (1.6-8.9) K/mcL BMP 03/27/17 04:07 Sodium 137 Potassium 4.7 H Chloride 103 Carbon Dioxide 25 BUN 22 Creatinine 1.06 Glucose 290 H Calcium 8.6 - ABG Interpretation ABG results: PT/INR, D-dimer PT 11.9 Seconds (9.4-12.1) 03/24/17 12:46 - Attending Attestation I examined this patient and my medical decision-making was reviewed with the Resident Physician, Dr. Urbina. I agree with the documented findings, disposition and treatment plan as described except to the extent set forth below. I have independently obtained history and examined the patient and my findings are summarized below: Patient reports difficulty swallowing solid food which is new from today. On exam he is awake alert oriented 3. Heart is regular. Lungs are clear. Cranial nerve exam: Pupils equal round reactive to light touch ocular movements intact. No facial symmetry. Sensation present and symmetrical. There is right deviation and slurred speech. Assessment: Right internal carotid artery stenosis status post carotid endarterectomy postoperative day 1 with mild neurological deficits that could be secondary to surgery Plan: Speech and swallow evaluation. Follow-up with vascular surgery. Close neurological monitoring.
--- NOTE | 2017-03-27 19:12 | Event Note ---
Date of Encounter: 03/27/17 Time of Encounter: 17:30 The patient is seen and evaluated this evening. His neck swelling continues to decrease. He is observed tolerating his modified diet tonight. He has no neurologic deficits. He will likely be discharged tomorrow. He may follow-up with vascular surgery in 2 weeks.
[2017-03-27] MEDS ORDERED: Insulin LISPRO 300 UNITS/3 ML VIAL SQ SCH (21:00)
[2017-03-28 03:50] LABS: Basophils % 0.1 %; Eosinophils # 0.1 K/mcL (0.0-0.6); Eosinophils % 0.7 %; Hematocrit 30.7 % (37.5-50.1); Hemoglobin 10.3 g/dL (12.9-16.9); Immature Granulocytes % 0.7 % (0-4); Lymphocytes # 1.1 K/mcL (0.6-4.6); Lymphocytes % 13.2 %; Mean Corpuscular HGB Conc 33.6 g/dL (31.6-35.5); Mean Corpuscular Hemoglobin 31.5 pg (28.0-33.3); Mean Corpuscular Volume 93.9 fL (83.0-100.0); Mean Platelet Volume 10.6 fL (9.4-12.4); Monocytes % 11.8 %; Neutrophils # 6.2 K/mcL (1.6-8.9); Platelet Count 113 K/mcL (140-400); Red Blood Count 3.27 M/mcL (4.19-5.50); Red Cell Distribution Width 12.5 % (11.5-14.5); Segmented Neutrophils % 73.5 %
[2017-03-28] MEDS: *HR* Metoprolol 5 MG/5 ML VIAL IVP SCH ×2 (05:51→11:25)
[2017-03-28] MEDS: Insulin LISPRO 300 UNITS/3 ML VIAL SQ SCH ×4 (08:14→11:24)
[2017-03-28] MEDS: Insulin NPH 100 UNIT/ML (x5UNIT) SQ SCH (08:14)
[2017-03-28 11:25] VITALS: BP 144/65
--- NOTE | 2017-03-28 13:58 | Internal Med Progress Note ---
Date of Encounter: 03/28/17 Time of Encounter: 14:00 - Assessment and plan (1) TIA (transient ischemic attack) Status: Acute Assessment and plan: s/p right CEA, doing well Had difficulty swallowing post op barium swallow showing dysphagia, speech therapy to work with patient outpatient. continue to hold oral BP meds holding plavix and ASA until follow up with line service technician Qualifiers: Transient cerebral ischemia type: amaurosis fugax Qualified Code(s): G45.3 - Amaurosis fugax (2) Carotid stenosis, right Status: Chronic (3) Hyperlipidemia Status: Chronic Qualifiers: Hyperlipidemia type: mixed hyperlipidemia Qualified Code(s): E78.2 - Mixed hyperlipidemia (4) Hypertension Status: Chronic Qualifiers: Hypertension type: essential hypertension Qualified Code(s): I10 - Essential (primary) hypertension - Subjective Interval history: Doing well, no issues. - Constitutional Vitals: Temp Pulse Resp BP Pulse Ox 97.8 F 58 16 144/65 96 03/28/17 11:24 03/28/17 11:46 03/28/17 11:24 03/28/17 11:24 03/28/17 11:24 General appearance: Present: cooperative, mild distress, A&O X 3, pleasant, no acute distress, answers questions appropriately - Neck Additional comments: incisions c/d/i - Respiratory Respiratory exam: Present: CTAB. Absent: accessory muscle use, rales, rhonchi, wheezes - Cardiovascular Cardiovascular exam: Present: RRR, +S1, +S2. Absent: diastolic murmur, gallop, rubs, systolic murmur Internal Medicine: Result - Labs CBC & Chem 7: 03/28/17 03:41 03/27/17 04:07 Labs: Short CBC 03/28/17 Range/Units 03:41 WBC 8.4 (4.3-11.1) K/mcL Hgb 10.3 L (12.9-16.9) g/dL Hct 30.7 L (37.5-50.1) % Plt Count 113 L (140-400) K/mcL Neutrophils # 6.2 (1.6-8.9) K/mcL - ABG Interpretation ABG results: PT/INR, D-dimer PT 11.9 Seconds (9.4-12.1) 03/24/17 12:46 - Impressions Impressions Videofluoroscopic Swallow 03/27/17 09:03 IMPRESSION: Laryngeal vestibular penetration with swallows of thin and nectar consistencies. Please see separate speech pathology report for full discussion of findings and recommendations. D/ / 03/27/2017 14:57:41 Den Bernard MD / kervin Interpreting Provider: Den Bernard MD - VTE Documentation of Mechanical Device: Intermittent pneumatic compression device Consult Discharge Plan - Plan Instructions: Carotid Endarterectomy (DC), Peripheral Vascular Disorders (DC), Surgical Site Infections (GEN), Chronic Hypertension (DC) Additional Instructions: continue incentive spirometry. Follow up with primary care doctor within one week of discharge. Follow up with your line service technician. follow up with vascular surgeon- Dr. Jesus Please stop taking aspirin and plavix until you follow up with your line service technician and vascular surgeon. return to emergency department if you develop stroke like symptoms, severe neck swelling, or difficulty in breathing. Referrals: Leda Slaughter DO [Primary Care Provider] - 04/04/17 9:45 am (Please follow up with your primary care provider [phone]) Ravindra Jesus MD [Partnered Physician] - 04/08/17 1:20 pm
--- NOTE | 2017-03-28 14:00 | Vascular/Endovas Progress Note ---
Date of Encounter: 03/28/17 Time of Encounter: 13:58 - Assessment and plan (1) TIA (transient ischemic attack) Current Visit: Yes Status: Acute Status post right carotid endarterectomy. Patient has recovered appropriately. The right neck edema and odynophagia is resolving. Patient may be discharged to home from a vascular surgery perspective. Patient is to follow up with Dr. Jesus. Qualifiers: Transient cerebral ischemia type: amaurosis fugax Qualified Code(s): G45.3 - Amaurosis fugax - Subjective Interval history: Patient is postoperative day #2 following right carotid endarterectomy by Dr. Jesus. Patient had uneventful night. His odynophagia has improved. He has increased the consistency of his food without respiratory embarrassment. Neurologically is stable. Vital Signs, Last 4 Hours Temp Pulse Resp BP Pulse Ox 03/28/17 11:46 58 03/28/17 11:24 97.8 F 68 16 144/65 96 - Physical Examination General: Present: Conversant, No Apparent Distress Vascular: Present: Surgical incisions (Right neck incision is clean and dry. Patient has ecchymosis along the neck and upper chest region. There is mild to moderate induration along the neck representing hematoma which is contained in non-expanding.) - VTE Documentation of Mechanical Device: Intermittent pneumatic compression device Results 03/28/17 03:41 03/27/17 04:07 Lab Results, Last 24 hours 03/28/17 03:41 WBC 8.4 Hgb 10.3 L Hct 30.7 L Plt Count 113 L Consult Discharge Plan - Plan Additional Instructions: continue incentive spirometry. Follow up with primary care doctor within one week of discharge. Follow up with your prosthetic aides teacher. follow up with vascular surgeon- Dr. Jesus Please stop taking aspirin and plavix until you follow up with your prosthetic aides teacher and vascular surgeon. return to emergency department if you develop stroke like symptoms, severe neck swelling, or difficulty in breathing. Referrals: Leda Slaughter DO [Primary Care Provider] - 04/04/17 9:45 am (Please follow up with your primary care provider [phone]) Ravindra Jesus MD [Partnered Physician] - 04/08/17 1:20 pm
--- NOTE | 2017-03-28 15:55 | Discharge Summary ---
Date of Encounter: 03/28/17 Time of Encounter: 15:52 - Discharge Diagnosis (1) TIA (transient ischemic attack) Priority: Primary Status: Acute Qualifiers: Transient cerebral ischemia type: amaurosis fugax Qualified Code(s): G45.3 - Amaurosis fugax (2) Postoperative anemia due to acute blood loss Priority: Secondary Status: Acute (3) Carotid stenosis, right Priority: Secondary Status: Chronic (4) Diabetes mellitus Priority: Secondary Status: Chronic Qualifiers: Diabetes mellitus type: type 2 Diabetes mellitus complication status: with circulatory complication Diabetes mellitus complication detail: with other circulatory complications Diabetes mellitus chcf insulin use: with longwall foreman use Qualified Code(s): E11.59 - Type 2 diabetes mellitus with other circulatory complications; Z79.4 - detention (current) use of insulin (5) Hyperlipidemia Priority: Secondary Status: Chronic Qualifiers: Hyperlipidemia type: mixed hyperlipidemia Qualified Code(s): E78.2 - Mixed hyperlipidemia (6) Hypertension Priority: Secondary Status: Chronic Qualifiers: Hypertension type: essential hypertension Qualified Code(s): I10 - Essential (primary) hypertension - Discharge Medications Home Medications: Insulin NPH Human Isophane [Novolin N] 20 unit SQ BIDWM 03/17/17 [History] Insulin Regular, Human [Novolin R] 20 unit SQ TIDAC 03/17/17 [History] Lisinopril-HCTZ 20-12.5 [Prinzide 20-12.5] 1 tab PO BID 03/17/17 [History] Metoprolol [Lopressor] 25 mg PO BID 03/17/17 [History] amLODIPine [Norvasc] 5 mg PO DAILY 03/17/17 [History] Atorvastatin [Lipitor] 40 mg PO HS #30 tablet 03/19/17 [Rx] Acetaminophen [Tylenol] 650 mg PO Q6HR PRN tablet 03/27/17 [Rx] Allergies/Adverse Reactions: 3 Allergy/AdvReac Type Severity Reaction Status Date / Time Iodinated Contrast- Oral and Allergy Hives Verified 03/24/17 09:03 IV Dye [Iodinated Contrast Media - Oral and] Date of admission: 03/24/17 19:48 Primary care physician: Jasper Chauhan Consults: 03/27/17 07:42 Consult to Speech Therapy [CONS] Routine Comment: Evaluate, develop and implement POC Reason for Consult: Difficulty swallowing thin liquids after carotid endarterectomy. Call Completed: No Discharging clinician: Stefani Camargo - Patient Status Disposition: Home, Self-Care Condition: Good - Discharge Instructions Instructions: Carotid Endarterectomy (DC), Peripheral Vascular Disorders (DC), Surgical Site Infections (GEN), Chronic Hypertension (DC) Follow Up With: Leda Slaughter DO [Primary Care Provider] - 04/04/17 9:45 am (Please follow up with your primary care provider [phone]) Ravindra Jesus MD [Partnered Physician] - 04/08/17 1:20 pm Additional Instructions: continue incentive spirometry. Follow up with primary care doctor within one week of discharge. Follow up with your mobile home servicer. follow up with vascular surgeon- Dr. Jesus Please stop taking aspirin and plavix until you follow up with your mobile home servicer and vascular surgeon. return to emergency department if you develop stroke like symptoms, severe neck swelling, or difficulty in breathing. - Diet and Activity Activity: as per physical therapy Diet: low fat, low cholesterol, low salt diet Hospital course: Mr. Newell is a 77 year old male - Time Spent with Patient Total time spent providing and/or coordinating discharge services: - Constitutional Vitals: Temp Pulse Resp BP Pulse Ox 97.8 F 58 16 144/65 96 03/28/17 11:24 03/28/17 11:46 03/28/17 11:24 03/28/17 11:24 03/28/17 11:24 General appearance: Present: cooperative, mild distress, A&O X 3, pleasant, no acute distress, answers questions appropriately - VTE Documentation of Mechanical Device: Intermittent pneumatic compression device
== END 2017-03-28 17:43 | disposition home or self-care (01) | DRG 38 ==
LOC: EMEROO 19:22 → ICNU 23:32 → INTOOBSV 23:32 → 2NNU 23:48
PROVIDERS: ADMIT Internal Medicine; ATTEND Internal Medicine

== ENCOUNTER 2020-07-05 16:26 | Inpatient (IN) ==
[2020-07-05 17:50] LABS: Hematocrit 39.3 % (37.5-50.1); Hemoglobin 13.2 g/dL (12.9-16.9); Mean Corpuscular HGB Conc 33.6 g/dL (31.6-35.5); Mean Corpuscular Hemoglobin 31.5 pg (28.0-33.3); Mean Corpuscular Volume 93.8 fL (83.0-100.0); Mean Platelet Volume 10.5 fL (9.4-12.4); Platelet Count 152 K/mcL (140-400); Red Blood Count 4.19 M/mcL (4.19-5.50); White Blood Count 5.9 K/mcL (4.3-11.1)
[2020-07-05 17:59] LABS: BUN/Creatinine Ratio 18 (6-26); Blood Urea Nitrogen 19 mg/dL (8-23); Calcium 8.9 mg/dL (8.6-10.3); Carbon Dioxide 27 mEq/L (23-29); Chloride 100 mEq/L (98-107); Glucose 313 mg/dL (70-105); Osmolality,Calculated 292 (280-300); Potassium 4.1 mEq/L (3.5-5.1); Sodium 134 mEq/L (136-145); eGFR For African Americans > 60 (> 60); eGFR For Non-African Americans > 60 (> 60)
[2020-07-05] MEDS ORDERED: Piperacillin/Tazobactam 3.375 GM in 0.9 % Sodium Chloride Mini Bag 100 ML IVPB ONE (20:58)
[2020-07-05] MEDS ORDERED: Azithromycin 500 MG in D5% in Water 250 ML IVPB ONE (20:58)
[2020-07-05] MEDS ORDERED: Naloxone 0.4 MG/ML INJ IVP PRN (21:38)
[2020-07-05] MEDS ORDERED: *HR* Dextrose 50 % in Water (Vial) 50 ML VIAL IVP PRN (22:18)
[2020-07-05] MEDS ORDERED: D5% in Water 1,000 ML IVC PRN (22:18)
[2020-07-05] MEDS ORDERED: Dextrose Gel 15 GM/37.5 ML TUBE PO PRN ×2 (22:18)
[2020-07-05] MEDS: predniSONE 20 MG TABLET PO SCH (22:47)
[2020-07-05] MEDS ORDERED: *HR* Labetalol 20 MG/4 ML SYRINGE IVP PRN (22:55)
[2020-07-05] MEDS: Insulin DETEMIR 100 UNIT/ML X5UNITS SUBQ SCH (23:37)
[2020-07-05] MEDS: Ipratropium/Albuterol Neb 3 ML IH SCH (23:50)
[2020-07-06] MEDS: Sennosides/Docusate Sodium TABLET PO SCH ×2 (00:28→09:52)
[2020-07-06 01:19] LABS: Basophils % 0.3 %; Eosinophils # 0.1 K/mcL (0.0-0.6); Eosinophils % 0.9 %; Hematocrit 38.4 % (37.5-50.1); Hemoglobin 12.5 g/dL (12.9-16.9); Immature Granulocytes % 1.4 % (0-4); Lymphocytes # 1.1 K/mcL (0.6-4.6); Lymphocytes % 15.6 %; Mean Corpuscular HGB Conc 32.6 g/dL (31.6-35.5); Mean Corpuscular Volume 95.3 fL (83.0-100.0); Mean Platelet Volume 10.2 fL (9.4-12.4); Monocytes # 0.8 K/mcL (0.0-1.3); Monocytes % 11.5 %; Neutrophils # 4.9 K/mcL (1.6-8.9); Platelet Count 147 K/mcL (140-400); Red Blood Count 4.03 M/mcL (4.19-5.50); Segmented Neutrophils % 70.3 %
[2020-07-06 01:23] LABS: INR 1.2
[2020-07-06 01:42] LABS: BUN/Creatinine Ratio 15 (6-26); Blood Urea Nitrogen 15 mg/dL (8-23); Calcium 8.7 mg/dL (8.6-10.3); Carbon Dioxide 27 mEq/L (23-29); Chloride 98 mEq/L (98-107); Glucose 252 mg/dL (70-105); Osmolality,Calculated 285 (280-300); Potassium 4.1 mEq/L (3.5-5.1); Sodium 133 mEq/L (136-145); eGFR For African Americans > 60 (> 60); eGFR For Non-African Americans > 60 (> 60)
[2020-07-06] MEDS: Ipratropium/Albuterol Neb 3 ML IH SCH ×6 (03:51→23:13)
[2020-07-06] MEDS: *HR* Enoxaparin 40 MG/0.4 ML SYRINGE SQ SCH (05:37)
[2020-07-06] MEDS ORDERED: levoFLOXacin 750 MG/150 ML 750 MG/150 ML BAG IVPB SCH (09:00)
[2020-07-06] MEDS ORDERED: Furosemide 20 MG TABLET PO SCH (09:00)
[2020-07-06] MEDS ORDERED: Losartan/HCTZ 50-12.5 TABLET PO SCH (09:00)
[2020-07-06 09:13] LABS: Adenovirus Not Detected (Not Detect); Bordetella Pertussis Not Detected (Not Detect); Chlamydophila pneumoniae Not Detected (Not Detect); Coronavirus 229E Not Detected (Not Detect); Coronavirus HKU1 Not Detected (Not Detect); Coronavirus NL63 Not Detected (Not Detect); Coronavirus OC43 Not Detected (Not Detect); Human Metapneumovirus Not Detected (Not Detect); Human Rhinovirus/Enterovirus Not Detected (Not Detect); Influenza A Subtype 2009 H1 Not Detected (Not Detect); Influenza B Not Detected (Not Detect); Mycoplasma pneumoniae Not Detected (Not Detect); Parainfluenza Virus 1 Not Detected (Not Detect); Parainfluenza Virus 2 Not Detected (Not Detect); Parainfluenza Virus 3 Not Detected (Not Detect); Parainfluenza Virus 4 Not Detected (Not Detect); Respiratory Syncytial Virus Not Detected (Not Detect); SARS-CoV-2 Not Detected (Not Detect)
[2020-07-06] MEDS: Aspirin Enteric Coated 81 MG Tablet PO SCH (09:52)
[2020-07-06] MEDS: amLODIPine 5 MG TABLET PO SCH (09:52)
[2020-07-06] MEDS: predniSONE 20 MG TABLET PO SCH (09:52)
[2020-07-06] MEDS: Piperacillin/Tazobactam 3.375 GM in 0.9 % Sodium Chloride Mini Bag 100 ML IVPB SCH ×2 (09:53→16:56)
[2020-07-06] MEDS: Insulin LISPRO 300 UNITS/3 ML VIAL SUBQ SCH ×3 (09:55→17:02)
[2020-07-06] MEDS: carvediloL 6.25 MG TABLET PO SCH (16:56)
[2020-07-06] MEDS ORDERED: Azithromycin 500 MG in 0.9 % Sodium Chloride 250 ML IVPB SCH (20:00)
[2020-07-06] MEDS ORDERED: Insulin LISPRO 300 UNITS/3 ML VIAL SUBQ SCH (21:00)
[2020-07-06] MEDS: Insulin DETEMIR 100 UNIT/ML X5UNITS SUBQ SCH (21:08)
[2020-07-07] MEDS: Piperacillin/Tazobactam 3.375 GM in 0.9 % Sodium Chloride Mini Bag 100 ML IVPB SCH ×2 (00:29→08:40)
[2020-07-07] MEDS: Ipratropium/Albuterol Neb 3 ML IH SCH ×3 (04:05→11:49)
[2020-07-07] MEDS: *HR* Enoxaparin 40 MG/0.4 ML SYRINGE SQ SCH (06:18)
[2020-07-07 06:47] LABS: Basophils % 0.1 %; Eosinophils % 0.3 %; Hematocrit 36.1 % (37.5-50.1); Hemoglobin 11.9 g/dL (12.9-16.9); Immature Granulocytes % 1.1 % (0-4); Lymphocytes # 1.1 K/mcL (0.6-4.6); Lymphocytes % 14.1 %; Mean Platelet Volume 10.2 fL (9.4-12.4); Monocytes % 12.8 %; Neutrophils # 5.4 K/mcL (1.6-8.9); Platelet Count 163 K/mcL (140-400); Red Blood Count 3.84 M/mcL (4.19-5.50); Segmented Neutrophils % 71.6 %; White Blood Count 7.5 K/mcL (4.3-11.1)
[2020-07-07 06:50] LABS: INR 1.1; Prothrombin Time 13.2 Seconds (9.4-12.1)
[2020-07-07 07:07] LABS: BUN/Creatinine Ratio 21 (6-26); Blood Urea Nitrogen 23 mg/dL (8-23); Calcium 8.7 mg/dL (8.6-10.3); Carbon Dioxide 26 mEq/L (23-29); Chloride 100 mEq/L (98-107); Glucose 329 mg/dL (70-105); Magnesium 2.1 mg/dL (1.6-2.6); Osmolality,Calculated 292 (280-300); Sodium 133 mEq/L (136-145); eGFR For African Americans > 60 (> 60); eGFR For Non-African Americans > 60 (> 60)
[2020-07-07] MEDS: Insulin LISPRO 300 UNITS/3 ML VIAL SUBQ SCH ×3 (08:21→12:07)
[2020-07-07] MEDS: amLODIPine 5 MG TABLET PO SCH (08:40)
[2020-07-07] MEDS: predniSONE 20 MG TABLET PO SCH (08:40)
[2020-07-07] MEDS: carvediloL 6.25 MG TABLET PO SCH (08:40)
[2020-07-07] MEDS: Sennosides/Docusate Sodium TABLET PO SCH (08:40)
[2020-07-07] MEDS: Aspirin Enteric Coated 81 MG Tablet PO SCH (08:40)
[2020-07-07] MEDS ORDERED: Furosemide 40 MG TABLET PO SCH (09:00)
[2020-07-07 10:46] VITALS: BP 147/70
== END 2020-07-07 13:00 | disposition home or self-care (01) | DRG 186 ==
LOC: EMEROOARM 16:26 → 3ANU 16:26 → SUATTDRO 21:19 → 3ANU 22:13
PROVIDERS: ADMIT Internal Medicine; ATTEND Internal Medicine